=== PATIENT | female | born 1960 | race African-American/Black ===

== ENCOUNTER 2019-01-14 11:56 | Emergency (ER) | payer MEDICAID ==
--- NOTE | 2019-01-14 12:29 | ER Document Report ---
ED Medical Screen (RME) - General Chief Complaint: Skin Sore(s) Stated Complaint: SKIN SORES ON LEG Time Seen by Provider: 01/14/19 12:13 Primary Care Provider: LALITHA HECTOR MD [Primary Care Provider] - Follow up as needed Mode of Arrival: Wheelchair Information source: Patient Notes: 58-year-old female presents emergency department with history of arthritis. Reports she went to see Dr. Hector's office yesterday because she has 2 sores on her lower legs. He prescribed some cream for it. She reports today her son notified her that Dr. Hector's office had called and told her to come to the emergency department. She is not sure why. She denies shortness of breath. She denies history of diabetes.. I contacted Dr. Hector's office. The bilingual office assistant there, Elin?, reports that she contacted Ms. Laure Patel's house today to discuss a surgical referral and talked with Ms Hung sister. Her sister told the bilingual office assistant that the patient's legs were gangrene and her skin was falling off and that is why she was told to come the emergency department. Patient has PVD. Bilateral sores noted on lower legs that appear to be healing. She denies fever vomiting diarrhea. She denies worsening symptoms. Discussed this with patient. Will do basic labs. I have greeted and performed a rapid initial assessment of this patient. A comprehensive ED assessment and evaluation of the patient, analysis of test results and completion of the medical decision making process will be conducted by additional ED providers. Dictation of this chart was performed using voice recognition software; therefore, there may be some unintended grammatical errors. TRAVEL OUTSIDE OF THE [place] IN LAST 30 DAYS: No - Related Data Allergies/Adverse Reactions: No Known Allergies Allergy (Verified 01/14/19 12:01) Past Medical History - Social History Frequency of alcohol use: Rare Drug Abuse: None Physical Exam - Vital signs Vitals: Temp Pulse Resp BP Pulse Ox 98.5 F 91 18 145/80 H 95 01/14/19 11:57 01/14/19 11:57 01/14/19 11:57 01/14/19 11:57 01/14/19 11:57 Course - Vital Signs Vital signs: Temp Pulse Resp BP Pulse Ox 98.5 F 91 18 145/80 H 95 01/14/19 11:57 01/14/19 11:57 01/14/19 11:57 01/14/19 11:57 01/14/19 11:57 Doctor's Discharge - Discharge Referrals: LALITHA HECTOR MD [Primary Care Provider] - Follow up as needed
[2019-01-14 13:09] LABS: ABSOLUTE EOSINOPHILS # (AUTO) 0.1 10^3/uL (0.0-0.6); ABSOLUTE LYMPHOCYTES (AUTO) 1.1 10^3/uL (0.5-4.7); ABSOLUTE MONOCYTES (AUTO) 0.6 10^3/uL (0.1-1.4); BASOPHILS % (AUTO) 0.6 % (0-2); EOSINOPHILS % (AUTO) 1.2 % (0-6); HEMATOCRIT 44.6 % (36.0-47.0); HEMOGLOBIN 15.1 g/dL (12.0-15.5); LYMPHOCYTES % (AUTO) 23.5 % (13-45); MEAN CORPUSCULAR HEMOGLOBIN 35.8 pg (27.0-33.4); MEAN CORPUSCULAR HGB CONC 33.8 g/dL (32.0-36.0); MEAN CORPUSCULAR VOLUME 106 fl (80-97); MONOCYTES % (AUTO) 12.4 % (3-13); PLATELET COUNT 290 10^3/uL (150-450); RED BLOOD COUNT 4.22 10^6/uL (3.72-5.28); RED CELL DISTRIBUTION WIDTH 14.2 % (11.5-14.0); SEGMENTED NEUTROPHILS % (AUTO) 62.3 % (42-78); TOTAL CELLS COUNTED % (AUTO) 100 %; WHITE BLOOD COUNT 4.7 10^3/uL (4.0-10.5)
[2019-01-14 13:25] LABS: ALBUMIN 4.3 g/dL (3.5-5.0); ALKALINE PHOSPHATASE 94 U/L (38-126); ANION GAP 9 (5-19); APPEARANCE,URINE CLOUDY; ASPARTATE AMINO TRANSFERASE 61 U/L (14-36); BILIRUBIN,DIRECT 0.2 mg/dL (0.0-0.4); BILIRUBIN,URINE NEGATIVE (NEGATIVE); BLOOD UREA NITROGEN 8 mg/dL (7-20); CALCIUM 9.7 mg/dL (8.4-10.2); CARBON DIOXIDE 26 mmol/L (22-30); CHLORIDE 103 mmol/L (98-107); COLOR,URINE YELLOW; GLUCOSE 95 mg/dL (75-110); GLUCOSE, URINE NEGATIVE (NEGATIVE); KETONES,URINE NEGATIVE (NEGATIVE); LEUKOCYTE ESTERASE,URINE NEGATIVE (NEGATIVE); NITRITE,URINE NEGATIVE (NEGATIVE); POTASSIUM 4.3 mmol/L (3.6-5.0); PROTEIN,URINE 100 mg/dL (NEGATIVE); TOTAL PROTEIN 7.7 g/dL (6.3-8.2); URINE SPECIFIC GRAVITY 1.017
--- NOTE | 2019-01-14 14:16 | ER Document Report ---
ED General - General Chief Complaint: Skin Sore(s) Stated Complaint: SKIN SORES ON LEG Time Seen by Provider: 01/14/19 12:13 Primary Care Provider: LALITHA HECTOR MD [Primary Care Provider] - Follow up in 1 week JOSE HERNANDEZ MD [ACTIVE STAFF] - Follow up in 1 week Mode of Arrival: Wheelchair TRAVEL OUTSIDE OF THE [place] IN LAST 30 DAYS: No - HPI Notes: 58 year old female with history of HTN to the ED with son with C/O bilateral leg swelling and sores that have been ongoing for several weeks. States that initially she had a wound to the inner right leg, but it seems to have gotten better. However, to the left inner calf there is a wound that is crusted over. It is not particularly painful. Denies fevers, chills, drainage, streaking redn ess. She is a smoker. - Related Data Allergies/Adverse Reactions: No Known Allergies Allergy (Verified 01/14/19 12:01) Past Medical History - General Information source: Patient - Social History Smoking Status: Current Every Day Smoker Frequency of alcohol use: Rare Drug Abuse: None Family History: Reviewed & Not Pertinent, Hypertension Patient has suicidal ideation: No Patient has homicidal ideation: No Musculoskeletal Medical History: Reports Hx Arthritis Review of Systems - Review of Systems Constitutional: denies: Chills, Fever EENT: No symptoms reported Cardiovascular: denies: Chest pain, Palpitations, Heart racing, Dyspnea, Syncope, Dizziness, Lightheaded Respiratory: denies: Cough, Short of breath Gastrointestinal: denies: Abdominal pain, Diarrhea, Nausea, Vomiting Musculoskeletal: See HPI, Joint pain - bilaterall lower leg pain, Joint swelling Skin: See HPI, Change in color -: Yes All other systems reviewed and negative Physical Exam - Vital signs Vitals: Temp Pulse Resp BP Pulse Ox 98.5 F 91 18 145/80 H 95 01/14/19 11:57 01/14/19 11:57 01/14/19 11:57 01/14/19 11:57 01/14/19 11:57 Interpretation: Normal - General General appearance: Appears well, Alert - HEENT Head: Normocephalic, Atraumatic Eyes: Normal Pupils: PERRL - Respiratory Respiratory status: No respiratory distress Chest status: Nontender Breath sounds: Normal Chest palpation: Normal - Cardiovascular Rhythm: Regular Heart sounds: Normal auscultation Murmur: No - Extremities Calf: Other - to bilateral calves up to the knees there is noted discoloration of the skin most consistent with venous stasis. There is a healing ulceration to the inner right calf and an active ulcer to the left inner calf. It is non TTP. the left ulcer involves only breakdown into the skin. There is no erythema or streaking lymphangitis,. There is bilateral lower leg edema. There are diminished DP pulses by touch but they are strong with bedside doppler. - Psychological Associated symptoms: Normal affect, Normal mood - Skin Skin Temperature: Warm Skin Moisture: Dry Skin Color: Other - see musculoskeletal for discussion on bilateral lower leg discoloration Course - Re-evaluation Re-evalutation: received call from [facility] -- preliminary read illustrates no acute arterial occlusion and normal flow of vascularture in arteries of the legs. Impression: Venous stasis with venous stasis ulcer. Patient with reassuring arterial dopplers. Stasis ulcer does not appear infected but family insistent on coverage with ABx. Will send home with Keflex. Will also have patient follow up with Dr. Hernandez for wound. Encouraged smoking cessation and will give compression hose as well. - Vital Signs Vital signs: Temp Pulse Resp BP Pulse Ox 98.9 F 99 15 144/88 H 99 01/14/19 18:18 01/14/19 18:18 01/14/19 18:18 01/14/19 18:18 01/14/19 18:18 - Laboratory Result Diagrams: 01/14/19 12:46 01/14/19 12:46 Laboratory results interpreted by me: 01/14/19 01/14/19 01/14/19 12:46 12:46 12:46 MCV 106 H MCH 35.8 H RDW 14.2 H AST 61 H Urine Protein 100 H Urine Urobilinogen 4.0 H Discharge - Discharge Clinical Impression: Venous stasis dermatitis of both lower extremities Venous stasis ulcer Qualifiers: Venous stasis ulcer site: calf Varicose vein presence: without varicose veins Non-pressure ulcer stage: limited to breakdown of skin Condition: Stable Disposition: HOME, SELF-CARE Additional Instructions: FOLLOW UP WITH PLANER SETUP OPERATOR ABOUT YOUR VENOUS STASIS. WEAR COMPRESSION HOSE. PERFORM ANKLE PUMPS DAILY. MONITOR WOUND. MAY CLEAN WITH WARM SOAPY WATER DAILY. RETURN IF WORSENING PAIN, REDNESS, ENLARGING WOUND, FEVERS, OR ANY OTHER CONCERNS. Prescriptions: Cephalexin Monohydrate [Keflex 500 mg Capsule] 500 mg PO Q6H 7 Days #28 capsule Compress.stocking,Knee,Reg,Lrg [Relief Knee Close Toe] 1 each MC DAILY #1 each Referrals: LALITHA HECTOR MD [Primary Care Provider] - Follow up in 1 week JOSE HERNANDEZ MD [ACTIVE STAFF] - Follow up in 1 week
[2019-01-14 18:28] VITALS: BP 144/88
--- NOTE | 2019-01-16 17:51 | XCELERA REPORT ---
[address] [address] Lower Extremity Arterial Evaluation Name: DAYRON MONTAGUE Age: 58 yrs Gender: Female : 1960 Patient Status: Emergency Patient Location: ER Study Date: 01/14/2019 03:38 PM Procedure: A color flow and duplex scan of the lower extremity arteries was performed bilaterally with velocity and waveform anaylsis. Reason For Study: sx of claudication, bilateral calf pain Ordering Physician: MARISOL TEIXEIRA Performed By: Jarrett Urban Measurements and Calculations Right Left SALT MAKER PSV 185.6 197.6 cm/sec Prox PFA PSV -141.4 -136.7cm/sec Prox SFA PSV 161.9 132.0 cm/sec Mid SFA PSV -166.8 -133.6cm/sec Dist SFA PSV -113.8 -121.0cm/sec Prox Pop A PSV 125.0 136.7 cm/sec Dist GREGORY PSV 112.5 104.2 cm/sec Dist DRY SANDER PSV 56.3 89.3 cm/sec Woo Pedis PSV 113.6 125.7 cm/sec Right Side Arterial Evaluation Normal velocity and triphasic waveforms noted from the Common Femoral artery to the infrageniculate vessels . Posterior Tibial flow somewhat slurred, hyperemic. Ankle Brachial index not obtained . Left Side Arterial Evaluation Normal velocity and triphasic waveforms noted from the Common Femoral artery to the infrageniculate vessels . Posterior Tibial flow somewhat slurred, hyperemic. Ankle Brachial index not obtained . Interpretation Summary No hemodynamically significant lesions in the bilateral lower extremities, on duplex imaging, at rest. : MARISOL TEIXEIRA > John Hernandez
== END 2019-01-14 18:18 | disposition home or self-care (01) ==
LOC: ER 11:56
DX: I87.2 Venous insufficiency (chronic) (peripheral) (principal); I87.319 Chronic venous hypertension (idiopathic) with ulcer of unspecified lower extremity; L98.9 Disorder of the skin and subcutaneous tissue, unspecified; M79.89 Other specified soft tissue disorders; F17.200 Nicotine dependence, unspecified, uncomplicated
CPT/HCPCS: 36415; 80053; 81001; 83880; 85025; 93925; 99283

== ENCOUNTER → 2019-02-10 | Outpatient (CLI) | payer MEDICAID ==
--- NOTE | 2019-02-10 13:48 | WOMENS IMAGING REPORT ---
EXAM DESCRIPTION: 3D SCREENING MAMMO BILAT COMPLETED DATE/TIME: 02/10/2019 11:43 am REASON FOR STUDY: Z12.31 SCREENING MAMMO Z12.31 ENCNTR SCREEN MAMMOGRAM FOR MALIGNANT NEOPLASM OF B RE COMPARISON: 02/28/2013. EXAM PARAMETERS: Views: Standard craniocaudal and mediolateral oblique views of each breast recorded using digital acquisition and breast tomosynthesis. Read with the assistance of CAD. .[facility] - [employer] Version 9.2 LIMITATIONS: None. FINDINGS: No suspicious masses, suspicious calcifications or architectural distortion. No areas of c oncern. IMPRESSION: NEGATIVE MAMMOGRAM. BIRADS 1. BREAST DENSITY: b. There are scattered areas of fibroglandular density. BIRAD: ASSESSMENT: 1 NEGATIVE RECOMMENDATION: ROUTINE SCREENING COMMENT: The patient has been notified of the results by letter per MQSA requirements. Additional no tification policies are in place for contacting patient with suspicious or incomplete findings. Quality ID #[id number]: The [employer] recommends an annual screening mammogram for women aged 40 years or over. This facility utilizes a reminder system to ensure that all patients receive reminder letters, and/or direct phone calls for appointments. This includes reminders for routine scr eening mammograms, diagnostic mammograms, or other Breast Imaging Interventions when appropriate. Th is patient will be placed in the appropriate reminder system. TECHNICAL DOCUMENTATION: FINDING NUMBER: (1) ASSESSMENT: (1) JOB ID: [id number] [employer]- All Rights Reserved Reading location - IP/workstation name: [email or web address]
== END ==
LOC: WI 10:55
PROVIDERS: ATTEND Internal Medicine Geriatric Medicine
DX: Z12.31 Encounter for screening mammogram for malignant neoplasm of breast (principal)
CPT/HCPCS: 77063; 77067

== ENCOUNTER → 2019-05-10 | Outpatient (CLI) | payer MEDICAID ==
[2019-05-10 12:15] LABS: ABSOLUTE EOSINOPHILS # (AUTO) 0.1 10^3/uL (0.0-0.6); ABSOLUTE LYMPHOCYTES (AUTO) 0.9 10^3/uL (0.5-4.7); ABSOLUTE MONOCYTES (AUTO) 0.6 10^3/uL (0.1-1.4); ABSOLUTE NEUT (AUTO) 2.2 10^3/uL (1.7-8.2); BASOPHILS % (AUTO) 0.6 % (0-2); EOSINOPHILS % (AUTO) 2.8 % (0-6); HEMATOCRIT 43.2 % (36.0-47.0); HEMOGLOBIN 14.9 g/dL (12.0-15.5); LYMPHOCYTES % (AUTO) 24.3 % (13-45); MEAN CORPUSCULAR HEMOGLOBIN 36.5 pg (27.0-33.4); MEAN CORPUSCULAR HGB CONC 34.5 g/dL (32.0-36.0); MEAN CORPUSCULAR VOLUME 106 fl (80-97); MONOCYTES % (AUTO) 16.5 % (3-13); PLATELET COUNT 253 10^3/uL (150-450); RED BLOOD COUNT 4.09 10^6/uL (3.72-5.28); RED CELL DISTRIBUTION WIDTH 14.4 % (11.5-14.0); SEGMENTED NEUTROPHILS % (AUTO) 55.8 % (42-78); TOTAL CELLS COUNTED % (AUTO) 100 %; WHITE BLOOD COUNT 3.9 10^3/uL (4.0-10.5)
== END ==
LOC: OD 10:52
PROVIDERS: ATTEND Internal Medicine Geriatric Medicine
DX: R23.8 Other skin changes (principal)
CPT/HCPCS: 36415; 85025; 86592; 87529

== ENCOUNTER 2019-05-18 14:07 | Emergency (ER) | payer MEDICAID ==
--- NOTE | 2019-05-18 14:39 | ER Document Report ---
ED Medical Screen (RME) - General Chief Complaint: Allergic Reaction Stated Complaint: POSSIBLE ALLERGIC REACTION/BODY RASH Time Seen by Provider: 05/18/19 14:33 Primary Care Provider: LALITHA HECTOR MD [Primary Care Provider] - Follow up as needed TRAVEL OUTSIDE OF THE [place] IN LAST 30 DAYS: No - HPI Notes: 05/18/19 14:38 Patient is a 58-year-old female complaining of a widespread rash that is been present since March, generally speaking, presenting complaining of pain to the rash as well as itching. She has been on prednisone which did not help. She is currently on doxycycline by her family doctor as well. Patient was told that it is allergic. She has not had any swelling of lips/tongue/throat or drooling. No fever, chest pain, or shortness of breath. Patient will need placed in gown and fully evaluated in her room. I have treated and performed a rapid initial assessment of this patient. A comprehensive ED assessment and evaluation of the patient, analysis of test results and completion of medical decision making process will be conducted by additional ED providers. PHYSICAL EXAMINATION: GENERAL: Well-appearing, well-nourished and in no acute distress. A&Ox4. Answers questions appropriately. Skin: dry skin noted to the hands b/l that are also cracked/lichenified. - Related Data Allergies/Adverse Reactions: No Known Allergies Allergy (Verified 05/18/19 14:29) Past Medical History Musculoskeltal Medical History: Reports Hx Arthritis Physical Exam - Vital signs Vitals: Temp Pulse Resp BP Pulse Ox 98 F 88 16 135/71 H 100 05/18/19 14:05/18/19 14:05/18/19 14:05/18/19 14:05/18/19 14:26 Course - Vital Signs Vital signs: Temp Pulse Resp BP Pulse Ox 98 F 88 16 135/71 H 100 05/18/19 14:05/18/19 14:05/18/19 14:05/18/19 14:05/18/19 14:26 Doctor's Discharge - Discharge Referrals: LALITHA HECTOR MD [Primary Care Provider] - Follow up as needed
--- NOTE | 2019-05-18 15:57 | ER Document Report ---
ED General - General Chief Complaint: Skin Problem Stated Complaint: POSSIBLE ALLERGIC REACTION/BODY RASH Time Seen by Provider: 05/18/19 14:33 Primary Care Provider: LALITHA HECTOR MD [Primary Care Provider] - Follow up as needed Notes: CHIEF COMPLAINT: Painful rash for 4 months HPI: 58-year-old female who denies other significant medical problems presenting to the emergency department complaining of both a pruritic and painful rash that has been essentially present for 4 months. Patient believes she ate a piece of pie and then broke out in the rash. She saw her PCP and was placed on an antibiotic, does not specifically remember the name but thinks it might have been Levaquin as she was taking 1 pill a day for 10 days. Patient states the rash did not change and actually started to spread and get worse. She states initially it was on the leg and now has the rash around the eyes, torso, all extremities. Patient states that she was placed on pre in February 2019, given a shot of steroids in March, placed back on steroids again at the beginning of April without change or resolution in the rash. She states that her PCP did draw blood work last week but she does not specifically know the results, patient is a poor historian. Patient states that she started doxycycline last night. Patient does report discomfort and drainage from both eyes, reports some dysuria. She also reports some generalized aching in the extremities and joints in addition to discomfort from the rash. Patient has not had a definitive fever. ROS: See HPI - all other systems were reviewed and are otherwise negative Constitutional: no fever Eyes: no drainage, no blurred vision ENT: no runny nose, no sore throat Cardiovascular: no chest pain Resp: no SOB, no cough GI: no vomiting, no diarrhea, no abdominal pain : + dysuria Integumentary: + rash Allergy: no hives Musculoskeletal: + extremity pain or swelling Neurological: no numbness/tingling, no weakness MEDICATIONS: I agree with the patient medications as charted by the RN. ALLERGIES: I agree with the allergies as charted by the RN. PAST MEDICAL HISTORY/PAST SURGICAL HISTORY: Reviewed and agree as charted by RN. SOCIAL HISTORY: Reviewed and agree as charted by RN. FAMILY HISTORY: No significant familial comorbid conditions directly related to patient complaint EXAM: Reviewed vital signs as charted by RN. CONSTITUTIONAL: Alert and oriented and responds appropriately to questions. Well-appearing; well-nourished, mild distress secondary to discomfort HEAD: Normocephalic; atraumatic EYES: PERRL; Conjunctivae injected bilaterally with clear tearing drainage. There is a raised darkened rash in the bilateral periorbital region, sclerae non-icteric ENT: normal nose; no rhinorrhea; moist mucous membranes; pharynx without lesions noted, no uvula edema or deviation, no tonsillar hypertrophy, phonation normal NECK: Supple without meningismus; non-tender; no cervical lymphadenopathy, no masses CARD: RRR; no murmurs, no clicks, no rubs, no gallops; symmetric distal pulses RESP: Normal chest excursion without splinting or tachypnea; breath sounds clear and equal bilaterally; no wheezes, no rhonchi, no rales, pulse oximetry 100% on room air not hypoxic ABD/GI: Obese, normal bowel sounds; non-distended; soft, non-tender, no rebound, no guarding; no palpable organomegaly or masses. BACK: The back appears normal and is non-tender to palpation, there is no CVA tenderness EXT: Normal ROM in all joints; mild generalized tenderness in the extremities; no cyanosis, no effusions, no edema SKIN: Normal color for age and race; warm; dry; good turgor; patient with a raised erythematous thickened and scaled type rash over the dorsum of the bilateral hands as well as on the palmar aspects of the hands with a darkened splotchy rash on the palms. Patient with multiple patches of similar thickened rash on the neck, back, anterior torso, upper and lower extremities. No petechia. No purpura. No vesicles. NEURO: Moves all extremities equally; Motor and sensory function intact PSYCH: The patient's mood and manner are appropriate. Grooming and personal hygiene are appropriate. MDM: 58-year-old female presenting with 4 months of a progressive uncomfortable rash. 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 Will obtain screening baseline lab work. TRAVEL OUTSIDE OF THE [place] IN LAST 30 DAYS: No - Related Data Allergies/Adverse Reactions: No Known Allergies Allergy (Verified 05/18/19 14:29) Past Medical History - Social History Smoking Status: Current Every Day Smoker Chew tobacco use (# tins/day): No Frequency of alcohol use: Occasional Family History: Reviewed & Not Pertinent, Hypertension Patient has suicidal ideation: No Patient has homicidal ideation: No - Past Medical History Cardiac Medical History: Reports: Hx Hypercholesterolemia, Hx Hypertension Musculoskeletal Medical History: Reports Hx Arthritis Physical Exam - Vital signs Vitals: Temp Pulse Resp BP Pulse Ox 98 F 88 16 135/71 H 100 05/18/19 14:26 05/18/19 14:26 05/18/19 14:26 05/18/19 14:26 05/18/19 14:26 Course - Re-evaluation Re-evalutation: 05/18/19 18:57 I discussed evaluation results at length with the patient. Her urine does not show evidence of infection. She does show elevation of her inflammatory markers. HIV was negative. Lab called and stated that they could not run a chlamydial test on a catheterized urine specimen. Discussed with the patient. She will self swab to send a specimen. She does not complain of vaginal discharge. This may be followed by her PCP. She will call her PCP tomorrow to schedule close follow-up in the office. 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 She is on doxycycline currently which would treat chlamydia should this be positive - Vital Signs Vital signs: Temp Pulse Resp BP Pulse Ox 98.7 F 86 16 120/65 100 05/18/19 18:33 05/18/19 18:33 05/18/19 18:33 05/18/19 18:33 05/18/19 18:33 - Laboratory Result Diagrams: 05/18/19 16:00 05/18/19 16:00 Laboratory results interpreted by me: 05/18/19 05/18/19 05/18/19 16:00 16:00 18:03 MCV 107 H MCH 36.3 H RDW 14.1 H ESR 32 H Glucose 111 H AST 42 H C-Reactive Protein 15.9 H Urine Protein >=500 H Urine Ketones TRACE H Urine Bilirubin SMALL H Urine Urobilinogen 4.0 H Urine Ascorbic Acid 40 H Discharge - Discharge 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 Take the Pyridium to help with the disco mfort urinating. You were given a long-acting steroid in the emergency department tonight Prescriptions: Phenazopyridine HCl [Pyridium 100 Mg Tablet] 100 mg PO TID #9 tablet Referrals: LALITHA HECTOR MD [Primary Care Provider] - Follow up as needed
[2019-05-18 16:28] LABS: ABSOLUTE EOSINOPHILS # (AUTO) 0.2 10^3/uL (0.0-0.6); ABSOLUTE LYMPHOCYTES (AUTO) 1.1 10^3/uL (0.5-4.7); ABSOLUTE MONOCYTES (AUTO) 0.7 10^3/uL (0.1-1.4); ABSOLUTE NEUT (AUTO) 4.2 10^3/uL (1.7-8.2); BASOPHILS % (AUTO) 0.3 % (0-2); EOSINOPHILS % (AUTO) 3.5 % (0-6); HEMATOCRIT 42.8 % (36.0-47.0); HEMOGLOBIN 14.5 g/dL (12.0-15.5); LYMPHOCYTES % (AUTO) 17.8 % (13-45); MEAN CORPUSCULAR HEMOGLOBIN 36.3 pg (27.0-33.4); MEAN CORPUSCULAR HGB CONC 33.8 g/dL (32.0-36.0); MEAN CORPUSCULAR VOLUME 107 fl (80-97); MONOCYTES % (AUTO) 10.8 % (3-13); PLATELET COUNT 263 10^3/uL (150-450); RED BLOOD COUNT 3.99 10^6/uL (3.72-5.28); RED CELL DISTRIBUTION WIDTH 14.1 % (11.5-14.0); SEGMENTED NEUTROPHILS % (AUTO) 67.6 % (42-78); TOTAL CELLS COUNTED % (AUTO) 100 %; WHITE BLOOD COUNT 6.1 10^3/uL (4.0-10.5)
[2019-05-18 16:44] LABS: ALBUMIN 4.1 g/dL (3.5-5.0); ALKALINE PHOSPHATASE 82 U/L (38-126); ANION GAP 5 (5-19); ASPARTATE AMINO TRANSFERASE 42 U/L (14-36); BILIRUBIN,TOTAL 0.6 mg/dL (0.2-1.3); BLOOD UREA NITROGEN 8 mg/dL (7-20); C-REACTIVE PROTEIN 15.9 mg/L (<10.0); CALCIUM 9.3 mg/dL (8.4-10.2); CARBON DIOXIDE 30 mmol/L (22-30); CHLORIDE 104 mmol/L (98-107); GLUCOSE 111 mg/dL (75-110); TOTAL PROTEIN 7.6 g/dL (6.3-8.2)
[2019-05-18 17:05] LABS: ERYTHROCYTE SEDIMENTATION RATE 32 mm/hr (0-30)
[2019-05-18 18:45] LABS: APPEARANCE,URINE SLIGHTLY-CLOUDY; BILIRUBIN,URINE SMALL (NEGATIVE); COLOR,URINE AMBER; GLUCOSE, URINE NEGATIVE (NEGATIVE); KETONES,URINE TRACE mg/dL (NEGATIVE); LEUKOCYTE ESTERASE,URINE NEGATIVE (NEGATIVE); NITRITE,URINE NEGATIVE (NEGATIVE); PROTEIN,URINE >=500 mg/dL (NEGATIVE); URINE SPECIFIC GRAVITY 1.027
[2019-05-18] MEDS ORDERED: DEXAMETHASONE 4 MG TABLET PO ONE (18:57)
[2019-05-18] MEDS ORDERED: PHENAZOPYRIDINE HCL 200 MG TABLET PO ONE (18:57)
[2019-05-18 19:32] VITALS: BP 132/82
[2019-05-18 21:19] LABS: CHLAM PCR NOT DETECTED (NOT DETECT)
== END 2019-05-18 19:30 | disposition home or self-care (01) ==
LOC: ER 14:07
DX: M02.39 Reiter's disease, multiple sites (principal); R30.0 Dysuria; R21 Rash and other nonspecific skin eruption; F17.200 Nicotine dependence, unspecified, uncomplicated; I10 Essential (primary) hypertension
CPT/HCPCS: 99283; 36415; 85025; 85652; 86140; 86592; 80053; 81001; 86701; 87491; 87591; J3490 ×2; J8540

== ENCOUNTER → 2019-07-29 | Outpatient (CLI) | payer MEDICAID ==
--- NOTE | 2019-07-29 16:51 | RADIOLOGY REPORT (SQ) ---
EXAM DESCRIPTION: ARTERIAL LOWER EXTREM BILAT; PHYSIO ARTERIAL LTD IMAGES COMPLETED DATE/TIME: 07/29/2019 3:23 pm REASON FOR STUDY: LLE ULCER L97.222 NON-PRESSURE CHRONIC ULCER OF LEFT CALF W FAT LAYER COMPARISON: None. TECHNIQUE: Dynamic and static hernandez scale and color images acquired of the lower extremity arteries. Additional selected spectral images recorded. ABIs recorded. LIMITATIONS: None. FINDINGS: RIGHT LEG: ABIS: Dorsalis pedis 1.29. Could not obtain posterior tibial due to swelling INFLOW ARTERIES: Triphasic waveform. No focal velocity elevation. FEMORAL ARTERIES:Triphasic waveforms. Normal, no velocity elevation to suggest focal stenosis. Normal color Doppler evaluation. No aneurysm. POPLITEAL ARTERY:Triphasic waveforms. Normal, no velocity elevation to suggest focal stenosis. Normal color Doppler evaluation. No aneurysm. PATENT TIBIOPERONEAL TRUNK AND 3 VESSEL RUNOFF: Yes, normal vessels. TBI: Not performed. OTHER: No other significant finding. LEFT LEG: ABIS: Dorsalis pedis 1.36. Could not obtain posterior tibia due to swelling . INFLOW ARTERIES: Normal, no obstruction evident. FEMORAL ARTERIES:Multiphasic waveforms. Normal, no velocity elevation to suggest focal stenosis. Norm al color Doppler evaluation. No aneurysm. POPLITEAL ARTERY:Multiphasic waveforms. Normal, no velocity elevation to suggest focal stenosis. Norm al color Doppler evaluation. No aneurysm. PATENT TIBIOPERONEAL TRUNK AND 3 VESSEL RUNOFF: Yes, normal vessels. TBI: Not performed. OTHER: Left inguinal node measuring 9 mm in short axis, non pathologically enlarged. IMPRESSION: 1. Normal bilateral lower extremity ABIs. 2. Triphasic waveform throughout without evidence of focal high-grade stenosis. COMMENT: [facility] NORMAL: Greater than 1.0 MINIMAL DISEASE: 0.9 to 1.0 CLAUDICATION: 0.5 to 0.9 SEVERE ARTERIAL DISEASE: Less than 0.5 [facility] NORMAL: Greater than 1.0 (1.2 If Heavy Calcifications) NORMAL TO MILD ISCHEMIA: 0.8 to 1.0 MODERATE ISCHEMIA: 0.4 to 0.8 SEVERE ISCHEMIA: Less than 0.4 TECHNICAL DOCUMENTATION: JOB ID: [id number] 2010 [employer]- All Rights Reserved Reading location - IP/workstation name: [email or web address]
--- NOTE | 2019-07-29 16:51 | RADIOLOGY REPORT (SQ) ---
EXAM DESCRIPTION: ARTERIAL LOWER EXTREM BILAT; PHYSIO ARTERIAL LTD IMAGES COMPLETED DATE/TIME: 07/29/2019 3:23 pm REASON FOR STUDY: LLE ULCER L97.222 NON-PRESSURE CHRONIC ULCER OF LEFT CALF W FAT LAYER COMPARISON: None. TECHNIQUE: Dynamic and static hernandez scale and color images acquired of the lower extremity arteries. Additional selected spectral images recorded. ABIs recorded. LIMITATIONS: None. FINDINGS: RIGHT LEG: ABIS: Dorsalis pedis 1.29. Could not obtain posterior tibial due to swelling INFLOW ARTERIES: Triphasic waveform. No focal velocity elevation. FEMORAL ARTERIES:Triphasic waveforms. Normal, no velocity elevation to suggest focal stenosis. Normal color Doppler evaluation. No aneurysm. POPLITEAL ARTERY:Triphasic waveforms. Normal, no velocity elevation to suggest focal stenosis. Normal color Doppler evaluation. No aneurysm. PATENT TIBIOPERONEAL TRUNK AND 3 VESSEL RUNOFF: Yes, normal vessels. TBI: Not performed. OTHER: No other significant finding. LEFT LEG: ABIS: Dorsalis pedis 1.36. Could not obtain posterior tibia due to swelling . INFLOW ARTERIES: Normal, no obstruction evident. FEMORAL ARTERIES:Multiphasic waveforms. Normal, no velocity elevation to suggest focal stenosis. Norm al color Doppler evaluation. No aneurysm. POPLITEAL ARTERY:Multiphasic waveforms. Normal, no velocity elevation to suggest focal stenosis. Norm al color Doppler evaluation. No aneurysm. PATENT TIBIOPERONEAL TRUNK AND 3 VESSEL RUNOFF: Yes, normal vessels. TBI: Not performed. OTHER: Left inguinal node measuring 9 mm in short axis, non pathologically enlarged. IMPRESSION: 1. Normal bilateral lower extremity ABIs. 2. Triphasic waveform throughout without evidence of focal high-grade stenosis. COMMENT: [facility] NORMAL: Greater than 1.0 MINIMAL DISEASE: 0.9 to 1.0 CLAUDICATION: 0.5 to 0.9 SEVERE ARTERIAL DISEASE: Less than 0.5 [facility] NORMAL: Greater than 1.0 (1.2 If Heavy Calcifications) NORMAL TO MILD ISCHEMIA: 0.8 to 1.0 MODERATE ISCHEMIA: 0.4 to 0.8 SEVERE ISCHEMIA: Less than 0.4 TECHNICAL DOCUMENTATION: JOB ID: [id number] 2010 [employer]- All Rights Reserved Reading location - IP/workstation name: [email or web address]
== END ==
LOC: SP 13:20
PROVIDERS: ATTEND Nurse Practitioner Family
DX: L97.222 Non-pressure chronic ulcer of left calf with fat layer exposed (principal)
CPT/HCPCS: 93922; 93925

== ENCOUNTER 2020-03-01 16:04 | Inpatient (IN) | payer MEDICAID ==
[2020-03-01] MEDS ORDERED: ACETAMINOPHEN 325 MG TABLET PO ONE (16:32)
--- NOTE | 2020-03-01 17:13 | ER Document Report ---
ED General - General Chief Complaint: Altered Mental Status Stated Complaint: ALTERED MENTAL STATUS Time Seen by Provider: 03/01/20 16:20 Notes: Patient is a 59-year-old female who presents emergency department via EMS for altered mental status. 12 hours prior to arrival, the patient had been altered. Patient also developed difficulty breathing. Patient is able to communicate with me in short phrases. Patient is tachypneic. She also has a fever of 102.5. Patient states that she is a current everyday smoker. Patient also states that she is a drinker. She does not know what medication she takes. TRAVEL OUTSIDE OF THE [place] IN LAST 30 DAYS: No - Related Data Allergies/Adverse Reactions: No Known Allergies Allergy (Verified 05/18/19 14:29) Past Medical History - Social History Smoking Status: Current Every Day Smoker Family History: Reviewed & Not Pertinent, Hypertension - Past Medical History Cardiac Medical History: Reports: Hx Hypercholesterolemia, Hx Hypertension Musculoskeletal Medical History: Reports Hx Arthritis Review of Systems - Review of Systems -: Yes ROS unobtainable due to patient's medical condition Physical Exam - Vital signs Vitals: Resp Pulse Ox 34 H 98 03/01/20 16:16 03/01/20 16:16 - Notes Notes: PHYSICAL EXAMINATION: GENERAL: Moderate distress. HEAD: Normocephalic, atraumatic. EYES: PERRL, conjunctiva normal, all extraocular movements intact, sclera nonicteric ENT: Moist mucous membranes. NECK: Supple, nuchal rigidity noted. LUNGS: Rhonchi lung sounds noted throughout all lung win. CARDIOVASCULAR: S1-S2, tachycardic, regular rhythm. Radial pulses 2+, normal. ABDOMEN: Normoactive bowel sounds. Soft, tender mid lower abdomen, no guarding, no rebound tenderness, and no masses palpated. EXTREMITIES: Normal strength and range of motion, no pitting or edema. No cyanosis. NEUROLOGICAL: Moves all extremities upon command. Strength 5/5 in all extremities. PSYCH: Normal mood, normal affect. SKIN: Warm, dry. No rash, lesions, ulcerations noted. Normal skin turgor. Course - Re-evaluation Re-evalutation: 03/01/20 19:36 I was able to speak to the patient's son, James Lopez and the patient's daughter. They report that the patient has multiple people coming in and out of the house giving her alcohol. They do not know if she has had any contact with anybody who tested positive for COVID-19. Daughter reports that the patient's neck has been stiff. 03/01/20 20:04 Hematology shows a leukocytosis of 11,800 with a left shift. Urinalysis shows a moderate amount of leukocytes in her urine with 148 WBCs. Patient also has a large amount of blood in her urine. We will start her on Rocephin. Chemistries show potassium of 3.2. Ordered potassium. Her creatinine is 2.73. Lactic acid is 3.2. Troponin is 0.046, will repeat another troponin. Chest x-ray is unremarkable. Waiting for CT of the head. Ordered Ativan for the patient to prevent alcohol withdrawals and to get an accurate CT of the head. 03/01/20 22:39 There is hydrocephalus noted on the patient's CT of the head. Discussed this case with Dr. Owen, my attending. She states that at this time, doing a lumbar puncture would not be appropriate and we will empirically treat patient for bacterial and viral meningitis. Spoke with Dr. Cornell, the hospitalist. He will evaluate the patient. 03/01/20 23:44 Dr. Cornell, the hospitalist will admit the patient to [facility]. - Vital Signs Vital signs: Temp Pulse Resp BP Pulse Ox 98.8 F 109 H 22 H 103/64 96 03/01/20 17:20 03/01/20 23:00 03/02/20 01:01 03/02/20 01:01 03/02/20 01:01 - Laboratory Result Diagrams: 03/01/20 16:45 03/01/20 16:45 Laboratory results interpreted by me: 03/01/20 03/01/20 03/01/20 16:45 16:45 16:45 WBC 11.8 H MCV 103 H MCH 35.2 H RDW 16.6 H Lymph % (Auto) 5.2 L Hand % (Auto) 2.7 L Absolute Neuts (auto) 10.8 H Seg Neutrophils % 91.8 H PT 15.5 H Potassium 3.2 L Carbon Dioxide 21 L BUN 41 H Creatinine 2.73 H Est GFR ( Amer) 21 L Est GFR (MDRD) Non-Af 18 L Lactic Acid Total Bilirubin 6.8 H Direct Bilirubin 2.2 H AST 165 H ALT 40 H Total Protein 8.6 H Urine Protein Urine Blood Urine Urobilinogen Leukocyte Esterase Rfl 03/01/20 03/01/20 16:45 19:03 WBC MCV MCH RDW Lymph % (Auto) Hand % (Auto) Absolute Neuts (auto) Seg Neutrophils % PT Potassium Carbon Dioxide BUN Creatinine Est GFR ( Amer) Est GFR (MDRD) Non-Af Lactic Acid 3.2 H Total Bilirubin Direct Bilirubin AST ALT Total Protein Urine Protein >=500 H Urine Blood LARGE H Urine Urobilinogen 2.0 H Leukocyte Esterase Rfl MODERATE H - EKG Interpretation by Me Additional EKG results interpreted by me: 03/01/20 Sinus tachycardia. Rate 119. NM 80; QRS 96; QT 304; QTc 428. No ST elevations or depressions noted. Discharge - Discharge Clinical Impression: Suspected infectious meningitis, Suspected COVID-19 virus infection Altered mental status Qualifiers: Altered mental status type: unspecified Qualified Code(s): R41.82 - Altered mental status, unspecified Sepsis Qualifiers: Sepsis type: sepsis due to unspecified organism Sepsis acute organ dysfunction status: unspecified Qualified Code(s): A41.9 - Sepsis, unspecified organism Condition: Stable Disposition: ADMITTED INPATIENT Admitting Provider: Dr. Cornell Unit Admitted: IMCU - COVID Rule out
[2020-03-01 17:22] LABS: INTERNATIONAL RATION (INR) 1.21; PROTHROMBIN TIME 15.5 SEC (11.4-15.4)
[2020-03-01 17:35] LABS: ABSOLUTE LYMPHOCYTES (AUTO) 0.6 10^3/uL (0.5-4.7); ABSOLUTE MONOCYTES (AUTO) 0.3 10^3/uL (0.1-1.4); ABSOLUTE NEUT (AUTO) 10.8 10^3/uL (1.7-8.2); BASOPHILS % (AUTO) 0.2 % (0-2); EOSINOPHILS % (AUTO) 0.1 % (0-6); LYMPHOCYTES % (AUTO) 5.2 % (13-45); MEAN CORPUSCULAR HEMOGLOBIN 35.2 pg (27.0-33.4); MEAN CORPUSCULAR HGB CONC 34.1 g/dL (32.0-36.0); MEAN CORPUSCULAR VOLUME 103 fl (80-97); MONOCYTES % (AUTO) 2.7 % (3-13); PLATELET COUNT 167 10^3/uL (150-450); RED BLOOD COUNT 3.97 10^6/uL (3.72-5.28); RED CELL DISTRIBUTION WIDTH 16.6 % (11.5-14.0); SEGMENTED NEUTROPHILS % (AUTO) 91.8 % (42-78); TOTAL CELLS COUNTED % (AUTO) 100 %; WHITE BLOOD COUNT 11.8 10^3/uL (4.0-10.5)
--- NOTE | 2020-03-01 17:38 | RADIOLOGY REPORT (SQ) ---
EXAM DESCRIPTION: CHEST SINGLE VIEW IMAGES COMPLETED DATE/TIME: 03/01/2020 5:04 pm REASON FOR STUDY: bed 6 sepsis protocol COMPARISON: None. EXAM PARAMETERS: NUMBER OF VIEWS: One view. TECHNIQUE: Single frontal radiographic view of the chest acquired. RADIATION DOSE: NA LIMITATIONS: None. FINDINGS: LUNGS AND PLEURA: No opacities, masses or pneumothorax. No pleural effusion. MEDIASTINUM AND HILAR STRUCTURES: No masses. Contour normal. HEART AND VASCULAR STRUCTURES: Heart normal in size. Normal vasculature. BONES: No acute findings. HARDWARE: None in the chest. OTHER: No other significant finding. IMPRESSION: NO ACUTE RADIOGRAPHIC FINDING IN THE CHEST. TECHNICAL DOCUMENTATION: JOB ID: [id number] 2010 [employer]- All Rights Reserved Reading location - IP/workstation name: [email or web address]
[2020-03-01 17:44] LABS: ALBUMIN 3.8 g/dL (3.5-5.0); ALKALINE PHOSPHATASE 97 U/L (38-126); ANION GAP 17 (5-19); ASPARTATE AMINO TRANSFERASE 165 U/L (14-36); BILIRUBIN,DIRECT 2.2 mg/dL (0.0-0.4); BILIRUBIN,TOTAL 6.8 mg/dL (0.2-1.3); BLOOD UREA NITROGEN 41 mg/dL (7-20); CARBON DIOXIDE 21 mmol/L (22-30); CHLORIDE 106 mmol/L (98-107); GLUCOSE 96 mg/dL (75-110); POTASSIUM 3.2 mmol/L (3.6-5.0); TOTAL PROTEIN 8.6 g/dL (6.3-8.2)
[2020-03-01] MEDS ORDERED: NORMAL SALINE 1000 ML 1,000 ML IV ONE (19:21)
[2020-03-01 19:28] LABS: APPEARANCE,URINE CLOUDY; BILIRUBIN,URINE NEGATIVE (NEGATIVE); GLUCOSE, URINE NEGATIVE (NEGATIVE); KETONES,URINE NEGATIVE (NEGATIVE); PROTEIN,URINE >=500 mg/dL (NEGATIVE); URINE SPECIFIC GRAVITY 1.019
[2020-03-01 19:29] LABS: COLOR,URINE YELLOW
[2020-03-01] MEDS ORDERED: CEFTRIAXONE 1 GM/D5W RTU 1 GM/50 ML RTUPB IV ONE (19:33)
[2020-03-01] MEDS ORDERED: LORAZEPAM INJ 2 MG/1 ML VIAL IV ONE (19:35)
[2020-03-01 21:14] LABS: A TYPE INFLUENZA AG NEGATIVE (NEGATIVE); B INFLUENZA AG NEGATIVE (NEGATIVE)
[2020-03-01] MEDS: POTASSI CL 20 MEQ/50 ML RIDER 20 MEQ/50 ML RTUPB IV SCH ×2 (21:34→22:59)
--- NOTE | 2020-03-01 21:54 | RADIOLOGY REPORT (SQ) ---
EXAM DESCRIPTION: CT HEAD WITHOUT IV CONTRAST COMPLETED DATE/TME: 03/01/2020 16:32 CLINICAL HISTORY: 59 years, Female, AMS COMPARISON: None. TECHNIQUE: Axial images without IV contrast. Sagittal coronal reconstruction. Images stored on PACS. All CT scanners at this facility use dose modulation, iterative reconstruction, and/or weight based dosing when appropriate to reduce radiation dose to as low as reasonably achievable (ALARA). FINDINGS: Moderate to prominent enlargement of the third and lateral ventricles. Normal size fourth ventricle. Relative effacement of the sulci especially in the upper slices of the brain. No suspicious focal intra-axial or extra-axial abnormality. Vascular calcifications. Paranasal sinuses, mastoid air cells and bony calvarium are unremarkable. IMPRESSION: Suspected hydrocephalus. NPH? Other cause such as aqueduct stenosis? Consider MRI. No old studies for comparison. TECHNICAL DOCUMENTATION: Quality ID # 436: Final reports with documentation of one or more dose reduction techniques (e.g., Automated exposure control, adjustment of the mA and/or kV according to patient size, use of iterative reconstruction technique) copyright 2011 [employer]- All Rights Reserved
[2020-03-01] MEDS ORDERED: VANCOMYCIN HCL INJ 1000 MG VIAL IV ONE (22:26)
[2020-03-01] MEDS ORDERED: CEFTRIAXONE INJ 1000 MG VIAL IV ONE (22:28)
[2020-03-01] MEDS ORDERED: ACYCLOVIR SODIUM INJ/PF 500 MG/10 ML SDV IV ONE (23:54)
[2020-03-02] MEDS ORDERED: ACETAMINOPHEN 650 MG SUPP.RECT PR PRN (00:04)
[2020-03-02] MEDS ORDERED: DEXTROSE 5%-NORMAL SALINE 1,000 ML IV PRN (00:04)
[2020-03-02] MEDS ORDERED: VANCOMYCIN HCL 0 MG in DEXTROSE 5%-WATER 250 ML IV NR (00:15)
[2020-03-02] MEDS ORDERED: DEXTROSE 50%-WATER 25 GM/50 ML DISP.SYRIN IV PRN ×2 (00:22)
[2020-03-02] MEDS ORDERED: DEXTROSE 40% GEL 15 GM TUBE PO PRN ×2 (00:22)
[2020-03-02] MEDS ORDERED: GLUCAGON,HUMAN RECOMB 1 MG INJ IM PRN (00:22)
--- NOTE | 2020-03-02 00:46 | PDOC H&P ---
History of Present Illness Admission Date/PCP: 03/02/20 00:08 MARISA BOTELLO NP Patient complains of: Altered mental status History of Present Illness: Patient is altered and history is per ER signout and chart review, attempt to reach patient's next of kin(son) with unsuccessful DAYRON MONTAGUE is a 59 year old female with a history of hypertension, hyperlipidemia and alcohol abuse was brought in by EMS for altered mental status which started 12 hours prior to presentation. According to her daughter Per ER signout, patient has been having neck pain and stiffness for the past few days. She also reported that she thinks people have been giving her alcohol at their house. On arrival patient was found to be lethargic but arousable with noxious stimuli, she had labored breathing. She was tachycardic, tachypneic and had a fever of 102.5. She was given a dose of vancomycin and ceftriaxone at the ER. No sick contact history is known. Past Medical History Cardiac Medical History: Reports: Hyperlipidema, Hypertension Musculoskeltal Medical History: Reports: Arthritis Social History Information Source: [facility] Records Smoking Status: Current Every Day Smoker - Advance Directive Resuscitation Status: Full Code Family History Family History: Reviewed & Not Pertinent, Hypertension Parental Family History Reviewed: No - Patient is altered Children Family History Reviewed: Unknown Sibling(s) Family History Reviewed.: Unknown Medication/Allergy Home Medications: No Home Medications 03/02/20 Allergies/Adverse Reactions: No Known Allergies Allergy (Verified 05/18/19 14:29) Review of Systems ROS unobtainable: Due to mental status Physical Exam Vital Signs: Temp Pulse Resp BP Pulse Ox 98.8 F 109 H 22 H 111/67 97 03/01/20 17:20 03/01/20 23:00 03/01/20 23:00 03/01/20 23:00 03/01/20 23:00 Intake & Output 02/29/20 03/01/20 03/02/20 06:59 06:59 06:59 Intake Total 1085 Balance 1085 Weight 81.647 kg Additional comments: GENERAL APPEARANCE: Lethargic but arousable, answers with one-word, not oriented to place and time HEENT: Normocephalic and atraumatic. No scleral icterus. Dry oral mucosa NECK: Has neck stiffness. No JVD CHEST: Symmetric. Nontender to palpation. LUNGS: Has coarse rhonchi and transmitted sound bilaterally HEART: Tachycardic, with normal S1 and S2. No murmurs, gallops, or rubs. ABDOMEN: Full abdomen, moves with respiration, soft, normoactive bowel sound. No organomegaly or mass detected. No direct or rebound tenderness EXTREMITIES: Has stasis dermatitis with dried and darkly discolored lower extremities distal to her knee PSYCHIATRIC: Unable to evaluate due to altered mental status SKIN: Warm, dry, and well perfused. NEUROLOGIC: Patient moves all her extremities and withdraws from noxious stimuli Has positive meningeal sign with neck stiffness Results Laboratory Results: 03/01/20 16:45 03/01/20 16:45 03/01/20 03/01/20 03/01/20 16:45 16:45 16:45 WBC 11.8 H RBC 3.97 Hgb 14.0 Hct 41.0 MCV 103 H MCH 35.2 H MCHC 34.1 RDW 16.6 H Plt Count 167 Seg Neutrophils % 91.8 H Sodium 143.5 Potassium 3.2 L Chloride 106 Carbon Dioxide 21 L Anion Gap 17 BUN 41 H Creatinine 2.73 H Est GFR ( Amer) 21 L Glucose 96 Lactic Acid 3.2 H Calcium 9.0 Total Bilirubin 6.8 H AST 165 H Alkaline Phosphatase 97 Total Protein 8.6 H Albumin 3.8 Urine Color Urine Appearance Urine pH Ur Specific [place] Urine Protein Urine Glucose (UA) Urine Ketones Urine Blood Urine RBC (Auto) 03/01/20 03/01/20 03/01/20 19:03 20:38 23:07 WBC RBC Hgb Hct MCV MCH MCHC RDW Plt Count Seg Neutrophils % Sodium Potassium Chloride Carbon Dioxide Anion Gap BUN Creatinine Est GFR ( Amer) Glucose Lactic Acid 1.7 2.0 Calcium Total Bilirubin AST Alkaline Phosphatase Total Protein Albumin Urine Color YELLOW Urine Appearance CLOUDY Urine pH 5.0 Ur Specific [place] 1.019 Urine Protein >=500 H Urine Glucose (UA) NEGATIVE Urine Ketones NEGATIVE Urine Blood LARGE H Urine RBC (Auto) 41 03/01/20 03/01/20 16:45 20:38 Troponin I 0.046 0.042 Impressions: Chest X-Ray 03/01/20 16:19 IMPRESSION: NO ACUTE RADIOGRAPHIC FINDING IN THE CHEST. Head CT 03/01/20 16:32 IMPRESSION: Suspected hydrocephalus. NPH? Other cause such as aqueduct stenosis? Consider MRI. No old studies for comparison. TECHNICAL DOCUMENTATION: Quality ID # 436: Final reports with documentation of one or more dose reduction techniques (e.g., Automated exposure control, adjustment of the mA and/or kV according to patient size, use of iterative reconstruction technique) copyright 2011 [employer]- All Rights Reserved Assessment and Plan - Diagnosis (1) Meningoencephalitis Is this a current diagnosis for this admission?: Yes Plan: Patient presents with altered mental status Has high-grade fever Positive meningeal sign CT head concerning for hydrocephalus Started her on vancomycin, ceftriaxone, Cyclovir Follow-up with blood cultures (2) Acute metabolic encephalopathy Is this a current diagnosis for this admission?: Yes Plan: Patient presents with altered mentation Likely due to meningoencephalitis, volume depletion, acute kidney injury, intoxication Will treat underlying cause with IV hydration, antibiotics For precaution, aspiration and seizure precaution (3) Sepsis Qualifiers: Sepsis type: sepsis due to unspecified organism Sepsis acute organ dysfunction status: unspecified Qualified Code(s): A41.9 - Sepsis, unspecified organism Is this a current diagnosis for this admission?: Yes Plan: Patient meets septic criteria for SIRS & qSOFA Lactic acid level was elevated and have leukocytosis Was hydrated with LR Currently on vancomycin, ceftriaxone and ampicillin for meningitis Continue close monitoring of vital (4) Acute kidney injury Is this a current diagnosis for this admission?: Yes Plan: BUN/creatinine was 41/2.73 from a baseline of 0.52 Continue IV hydration Monitor renal indicis Renally dose medication and avoid nephrotoxic If no improvement, will consider nephrology consult (5) Hypokalemia Is this a current diagnosis for this admission?: Yes Plan: Serum potassium was 3.2 Patient was given potassium supplement Continue to monitor electrolytes (6) Hydrocephalus Is this a current diagnosis for this admission?: Yes Plan: CT head shows signs of hydrocephalus, likely NPH Patient has no signs of Alin triad suggestive of increased ICP May consider MRI for further characterization per radiology recommendation (7) Hypertension Is this a current diagnosis for this admission?: Yes Plan: We will hold antihypertensive medication due to JANET and volume depletion (8) Alcohol dependence Is this a current diagnosis for this admission?: Yes Plan: Serum alcohol level was less than 10 on presentation Placed her on CIWA protocol for placement of withdrawal (9) Tobacco dependence Is this a current diagnosis for this admission?: Yes - Time Time Spent with patient: 35 or more minutes Total Critical Time (Minutes): 50 Medications reviewed and adjusted accordingly: Yes Anticipated Discharge Disposition: Home, Self Care Anticipated Discharge Timeframe: within 72 hours - Inpatient Certification Based on my medical assessment, after consideration of the patient's comorbidities, presenting symptoms, or acuity I expect that the services needed warrant INPATIENT care.: Yes I certify that my determination is in accordance with my understanding of Medicare's requirements for reasonable and necessary INPATIENT services [42 CFR 412.3e].: Yes Medical Necessity: Significant Comorbidiites Make Outpatient Treatment Too Risk y, Need Close Monitoring Due to Risk of Patient Decompensation, Need For IV Fluids, Need for IV Antibiotics Post Hospital Care: D/C or Transfer Summary
[2020-03-02] MEDS ORDERED: VANCOMYCIN HCL INJ 1000 MG VIAL IV PRN (01:38)
[2020-03-02] MEDS ORDERED: AMPICILLIN SOD INJ 2 GM VIAL IV PRN (01:51)
[2020-03-02] MEDS ORDERED: VANCOMYCIN HCL 750 MG in DEXTROSE 5%-WATER 250 ML IV ONE (02:00)
[2020-03-02] MEDS ORDERED: AMPICILLIN SODIUM 2 GM in NORMAL SALINE 100 ML IV ONE (03:00)
[2020-03-02] MEDS ORDERED: AMPICILLIN SOD INJ 2 GM VIAL ONE (03:51)
[2020-03-02] MEDS ORDERED: POTASSI CL 20 MEQ/50 ML RIDER 20 MEQ/50 ML RTUPB IV ONE (05:06)
[2020-03-02] MEDS ORDERED: ACYCLOVIR SODIUM 750 MG in NORMAL SALINE 250 ML IV SCH (06:00)
[2020-03-02 07:55] LABS: ABSOLUTE EOSINOPHILS # (AUTO) 0.1 10^3/uL (0.0-0.6); ABSOLUTE LYMPHOCYTES (AUTO) 0.5 10^3/uL (0.5-4.7); ABSOLUTE MONOCYTES (AUTO) 0.3 10^3/uL (0.1-1.4); ABSOLUTE NEUT (AUTO) 8.1 10^3/uL (1.7-8.2); BASOPHILS % (AUTO) 0.4 % (0-2); EOSINOPHILS % (AUTO) 0.8 % (0-6); HEMOGLOBIN 12.8 g/dL (12.0-15.5); LYMPHOCYTES % (AUTO) 5.9 % (13-45); MEAN CORPUSCULAR HEMOGLOBIN 35.7 pg (27.0-33.4); MEAN CORPUSCULAR HGB CONC 34.5 g/dL (32.0-36.0); MEAN CORPUSCULAR VOLUME 104 fl (80-97); PLATELET COUNT 126 10^3/uL (150-450); RED BLOOD COUNT 3.57 10^6/uL (3.72-5.28); SEGMENTED NEUTROPHILS % (AUTO) 89.9 % (42-78); TOTAL CELLS COUNTED % (AUTO) 100 %
[2020-03-02] MEDS: CEFTRIAXONE 2 GM/D5W RTU 2 GM/50 ML RTUPB IV SCH ×2 (07:57→17:05)
[2020-03-02 08:17] LABS: ANION GAP 11 (5-19); BLOOD UREA NITROGEN 50 mg/dL (7-20); CALCIUM 8.3 mg/dL (8.4-10.2); CARBON DIOXIDE 23 mmol/L (22-30); CHLORIDE 111 mmol/L (98-107); GLUCOSE 102 mg/dL (75-110); POTASSIUM 3.8 mmol/L (3.6-5.0)
--- NOTE | 2020-03-02 09:47 | EKG REPORT ---
SEVERITY:- ABNORMAL ECG - SINUS TACHYCARDIA BORDERLINE LEFT AXIS DEVIATION ABNRM R PROG, CONSIDER ASMI OR LEAD PLACEMENT ABNORMAL T, CONSIDER ISCHEMIA, LATERAL LEADS : Confirmed by: Colt Chaidez MD 02-Mar-2020 09:45:56
[2020-03-02] MEDS: ACYCLOVIR SODIUM 1,000 MG in NORMAL SALINE 250 ML IV SCH ×2 (09:52→21:49)
[2020-03-02] MEDS ORDERED: HEPARIN SOD (PORCINE) 5,000 UNIT/ML 1 ML VIAL SUBCUT SCH (10:00)
[2020-03-02] MEDS ORDERED: LORAZEPAM INJ 2 MG/1 ML VIAL IV PRN (10:29)
[2020-03-02 10:32] LABS: URINE CREATININE 345.8 mg/dL (15-278)
[2020-03-02] MEDS: AMPICILLIN SODIUM 2 GM in NORMAL SALINE 100 ML IV SCH ×2 (11:19→17:39)
--- NOTE | 2020-03-02 13:45 | RADIOLOGY REPORT (SQ) ---
EXAM DESCRIPTION: MRI HEAD WITHOUT IMAGES COMPLETED DATE/TIME: 03/02/2020 12:15 pm REASON FOR STUDY: concern for obstructive hydrocephalus COMPARISON: CT brain 03/01/2020 TECHNIQUE: Multiplanar imaging includes non-contrasted T1, T2, FLAIR, and diffusion with ADC map seq uences. Images stored on PACS. LIMITATIONS: Motion artifact throughout the study FINDINGS: There is significant motion artifact throughout the entire exam. Diffusion-weighted images are negative for acute ischemic change. Mild ventriculomegaly is present out of proportion to sulci and sylvian fissures. Minimal spotty bifrontal and biparietal high signal on FLAIR images likely from chronic small vessel disease. IMPRESSION: Extremely limited brain MRI exam due to motion artifact. No large territory acute ische jessica change. Mild ventriculomegaly out of proportion to sulci and sylvian fissures. Hemispheric chronic white mat ter disease. EVIDENCE OF ACUTE STROKE: NO. TECHNICAL DOCUMENTATION: JOB ID: [id number] 2010 [employer]- All Rights Reserved Reading location - IP/workstation name: [email or web address]
[2020-03-02 14:37] LABS: CSF TUBE NUMBER 1
[2020-03-02 14:42] LABS: APPEARANCE TUBE 1 CLEAR; COLOR TUBE 1 LIGHT YELLOW
[2020-03-02 14:43] LABS: CSF TOTAL VOLUME 0.5 CC; VOLUME TUBE 1 0.5 CC
[2020-03-02 15:02] LABS: RED BLOOD CELL,CSF 766 /uL (0-10); WHITE BLOOD CELL,CSF 20 /uL (0-5)
[2020-03-02 15:29] LABS: MONONUCLEAR CELLS CSF 91 %; POLYMORPHONUCLEAR CELLS CSF 9 %
--- NOTE | 2020-03-02 15:45 | RADIOLOGY REPORT (SQ) ---
EXAM DESCRIPTION: LUMBAR PUNCTURE IMAGES COMPLETED DATE/TIME: 03/02/2020 1:10 pm REASON FOR STUDY: rule out meningitis vs encephalitis vs high ICP COMPARISON: None. FLUOROSCOPY TIME: 48 second 2 images saved to PACS. TECHNIQUE: Fluoroscopic guided lumbar puncture. LIMITATIONS: None. PROCEDURE: After written consent and assessment were obtained, the patient was brought into the fluo roscopy room and placed prone on the table. The patient's lower back was prepped in a sterile fashio n and an entry site was selected under live fluoroscopic guidance. The entry site was anesthetized wi th 1% lidocaine. A 20 gauge needle was advanced through the skin and into the thecal sac at the level of L2-L3. Opening pressure measured 14 cm water. After approximately 0.5 ml was drained, no more f luid could be obtained. Another attempt was made at the L3-4 level. No C FS was obtained from this level. The needle was removed and a sterile bandage was placed of the site. Specimens were sent to the lab for testing. A fluoroscopic spot image was saved to PACS confirming level access. FINDINGS: Clear CSF IMPRESSION: Lumbar puncture under fluoroscopy. No immediate complication. Only obtained 0.5 mL CSF. COMMENT: Patient medication list reviewed: Yes- Quality ID# 130:Eligible professional attests to doc umenting in the medical record they obtained, updated, or reviewed the patient's current medications. . Quality ID 145: Final reports for procedures using fluoroscopy that document radiation exposure jacquelin yifan, or exposure time and number of fluorographic images (if radiation exposure indices are not avail able) TECHNICAL DOCUMENTATION: JOB ID: [id number] 2010 [employer]- All Rights Reserved Reading location - IP/workstation name: [email or web address]
[2020-03-02] MEDS ORDERED: CEFTRIAXONE 2 GM/D5W RTU 2 GM/50 ML RTUPB IV SCH (18:00)
[2020-03-03] MEDS ORDERED: VANCOMYCIN HCL 1,500 MG in DEXTROSE 5%-WATER 250 ML IV SCH (06:00)
[2020-03-03] MEDS: CEFTRIAXONE 2 GM/D5W RTU 2 GM/50 ML RTUPB IV SCH (06:08)
[2020-03-03 07:46] LABS: EOSINOPHILS % (AUTO) 0.2 % (0-6); LYMPHOCYTES % (AUTO) 11.4 % (13-45); TOTAL CELLS COUNTED % (AUTO) 100 %
[2020-03-03 07:48] LABS: ABSOLUTE LYMPHOCYTES (AUTO) 0.9 10^3/uL (0.5-4.7); ABSOLUTE MONOCYTES (AUTO) 0.6 10^3/uL (0.1-1.4); ABSOLUTE NEUT (AUTO) 6.7 10^3/uL (1.7-8.2); BASOPHILS % (AUTO) 0.4 % (0-2); HEMOGLOBIN 13.3 g/dL (12.0-15.5); MEAN CORPUSCULAR HGB CONC 34.1 g/dL (32.0-36.0); MEAN CORPUSCULAR VOLUME 103 fl (80-97); MONOCYTES % (AUTO) 7.3 % (3-13); PLATELET COUNT 116 10^3/uL (150-450); RED CELL DISTRIBUTION WIDTH 17.2 % (11.5-14.0); SEGMENTED NEUTROPHILS % (AUTO) 80.7 % (42-78); WHITE BLOOD COUNT 8.3 10^3/uL (4.0-10.5)
[2020-03-03] MEDS: AMPICILLIN SODIUM 2 GM in NORMAL SALINE 100 ML IV SCH ×3 (09:18)
[2020-03-03] MEDS: ACYCLOVIR SODIUM 1,000 MG in NORMAL SALINE 250 ML IV SCH (09:18)
[2020-03-03] MEDS ORDERED: ACETAMINOPHEN 325 MG TABLET ONE (11:06)
[2020-03-03] MEDS: FOLIC ACID 1 MG TABLET PO SCH (11:15)
[2020-03-03] MEDS: THIAMINE HCL 100 MG TABLET PO SCH (11:15)
[2020-03-03] MEDS: NICOTINE 14 MG/24 HR PATCH.TD24 TD SCH (11:15)
[2020-03-03 13:34] LABS: ANION GAP 10 (5-19); BLOOD UREA NITROGEN 33 mg/dL (7-20); CALCIUM 8.3 mg/dL (8.4-10.2); CARBON DIOXIDE 20 mmol/L (22-30); CHLORIDE 113 mmol/L (98-107); GLUCOSE 116 mg/dL (75-110)
--- NOTE | 2020-03-03 13:58 | RADIOLOGY REPORT (SQ) ---
EXAM DESCRIPTION: VENOUS UNILATERAL LOWER IMAGES COMPLETED DATE/TIME: 03/03/2020 1:36 pm REASON FOR STUDY: rule out DVT (RIGHT) COMPARISON: None. TECHNIQUE: Dynamic and static hernandez scale and color images acquired of the right leg venous system. S elected spectral images acquired with additional compression and augmentation maneuvers. The contrala teral common femoral vein and saphenofemoral junction were also imaged. Images stored on PACS. LIMITATIONS: None. FINDINGS: COMMON FEMORAL: Acute thrombus FEMORAL: Acute thrombus POPLITEAL: Patent but acute thrombus CALF VESSELS: Extensive edema. Suspect thrombus. GSV and SSV: Normal compression, augmentation. No visualized echogenic material on hernandez scale. No def ects on color images. ANY DEEP VENOUS INSUFFICIENCY: Not evaluated. ANY EVIDENCE OF POPLITEAL CYST: No. OTHER: Marked edema CONTRALATERAL COMMON FEMORAL VEIN AND SAPHENOFEMORAL JUNCTION: Not performed IMPRESSION: Acute DVT common femoral to calf muscles on the left COMMENT: Pertinent findings on the imaging study reported as a CRITICAL RESULT to GAYE castanon t13:51 on 03/03/2020. Category of Critical Result: Acute DVT TECHNICAL DOCUMENTATION: JOB ID: [id number] 2010 [employer]- All Rights Reserved Reading location - IP/workstation name: [email or web address]
--- NOTE | 2020-03-03 16:55 | PDOC PROGRESS REPORT ---
Subjective Progress Note for:: 03/03/20 Subjective:: Patient evaluated on morning rounds. She is resting in bed seen drinking water and eating ice. Pt eports long standing back pain, spending most time in wheelchair or in bed at her baseline. She tells me decreased neck ROM is her baseline, reporting history of multiple injections in her back approximately x1 year ago. When asked to clarify she is unable to. She tells me that she lives with her son. Reports last alcoholic beverage on 02/26/2020. Refuses to clarify how many alcoholic beverages consumed daily. Denies supplemental O2 at home. Further denies headache, chest pain, SOB, cough, abd pain, NVD, lower extremity pain or weakness. Prior to evaluating pt nurse contacted me, pt c/o bilateral lower extremity pain, R>L with RLE > LLE size with associated warmth and erythema. As reported by nurse: RLE below the knee measurement 51.5cm, mid calf 44cm. Left below the knee 42.5cm, mid calf 36cm. Pt with hx smoking, requesting nicotine patch. Reason For Visit: ALTERED MENTAL STATUS,SEPSIS,SUSPECTED INFECTIOUS Physical Exam Vital Signs: Temp Pulse Resp BP Pulse Ox 99.1 F 92 16 132/81 H 96 03/03/20 14:00 03/03/20 14:00 03/03/20 14:00 03/03/20 14:00 03/03/20 14:00 Intake & Output 03/02/20 03/03/20 03/04/20 06:59 06:59 06:59 Intake Total 1485 890 797 Output Total 600 545 Balance 1485 290 252 Weight 109 kg 114 kg General appearance: PRESENT: no acute distress, cooperative, hard of hearing, o bese Head exam: PRESENT: atraumatic, normocephalic Eye exam: PRESENT: EOMI. ABSENT: scleral icterus Mouth exam: PRESENT: dry mucosa, tongue midline Neck exam: ABSENT: full ROM, JVD, tenderness, thyromegaly Respiratory exam: PRESENT: decreased breath sounds - Left lung field, Associated wheezes., wheezes - Left lung win. ABSENT: chest wall tenderness, tachypnea, unlabored Cardiovascular exam: PRESENT: RRR, +S1, +S2. ABSENT: diastolic murmur, irregular rhythm, systolic murmur, tachycardia Pulses: PRESENT: normal radial pulses GI/Abdominal exam: PRESENT: soft. ABSENT: distended, firm, tenderness Gentrourinary exam: PRESENT: indwelling catheter Extremities exam: PRESENT: other - RLE > LLE in size. RLE with associated warmth and erythema. Musculoskeletal exam: ABSENT: ambulatory, deformity Neurological exam: PRESENT: alert, awake, oriented to person, oriented to place, oriented to time Psychiatric exam: PRESENT: appropriate affect, normal mood Skin exam: PRESENT: other - Skin bilateral lower extremities is dry, flaking and scailing. Hyperpigmentation consistent with chronic skin changes. Onychomycosis with all ten toes involved and associated thickening/discoloration.. ABSENT: normal color, rash Results Laboratory Results: 03/03/20 06:38 03/03/20 12:54 03/03/20 03/03/20 03/03/20 06:38 12:54 12:54 WBC 8.3 RBC 3.80 Hgb 13.3 Hct 39.0 MCV 103 H MCH 35.0 H MCHC 34.1 RDW 17.2 H Plt Count 116 L Seg Neutrophils % 80.7 H Sodium 142.8 Potassium 4.0 Chloride 113 H Carbon Dioxide 20 L Anion Gap 10 BUN 33 H Creatinine 1.07 Est GFR ( Amer) > 60 Glucose 116 H Calcium 8.3 L Magnesium 1.5 L Ammonia 16.7 03/01/20 03/01/20 16:45 20:38 Troponin I 0.046 0.042 Impressions: Chest X-Ray 03/01/20 16:19 IMPRESSION: NO ACUTE RADIOGRAPHIC FINDING IN THE CHEST. Head CT 03/01/20 16:32 IMPRESSION: Suspected hydrocephalus. NPH? Other cause such as aqueduct stenosis? Consider MRI. No old studies for comparison. TECHNICAL DOCUMENTATION: Quality ID # 436: Final reports with documentation of one or more dose reduction techniques (e.g., Automated exposure control, adjustment of the mA and/or kV according to patient size, use of iterative reconstruction technique) copyright 2011 [employer]- All Rights Reserved Head MRI 03/02/20 00:00 IMPRESSION: Extremely limited brain MRI exam due to motion artifact. No large territory acute ischemic change. Mild ventriculomegaly out of proportion to sulci and sylvian fissures. Hemisp heric chronic white matter disease. EVIDENCE OF ACUTE STROKE: NO. Lumbar Puncture 03/02/20 00:00 IMPRESSION: Lumbar puncture under fluoroscopy. No immediate complication. Only obtained 0.5 mL CSF. Venous Doppler Study 03/03/20 00:00 IMPRESSION: Acute DVT common femoral to calf muscles on the left Assessment and Plan - Diagnosis (1) Right femoral vein DVT Qualifiers: Chronicity: acute Qualified Code(s): I82.411 - Acute embolism and thrombosis of right femoral vein Is this a current diagnosis for this admission?: Yes (2) Wheezing Is this a current diagnosis for this admission?: Yes (3) Sepsis Qualifiers: Sepsis type: sepsis due to unspecified organism Sepsis acute organ dysfunction status: unspecified Qualified Code(s): A41.9 - Sepsis, unspecified organism Is this a current diagnosis for this admission?: Yes (4) Acute metabolic encephalopathy Is this a current diagnosis for this admission?: Yes (5) Acute kidney injury Is this a current diagnosis for this admission?: Yes (6) Hypertension Is this a current diagnosis for this admission?: Yes (7) Hypokalemia Is this a current diagnosis for this admission?: Yes (8) Suspected COVID-19 virus infection Is this a current diagnosis for this admission?: Yes (9) Suspected infectious meningitis Is this a current diagnosis for this admission?: Yes (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 Initiate Eliquis 10mg BID x7 days, followed by 5mg BID continued therapy. Wheezing: Potentially secondary to PE. Eliquis as above. No signs of right heart strain on labs, ecg or imaging. No further work up required. Acute metabolic encephalopathy: Significant improved with IV fluids and abx. AMS on initial presentation. Likely secondary to combination of uremia, volume depletion and UTI. Meningoencephalitis: Ruled out. CSF Results, though limited, indicate CSF WBC 20. WNL as per CSF WBC correction in blood contaminated CSF. Due to limited sample unable to obtain CSF glucose or total protein. Head MRI without findings of miningeal inflammation. Discontinue vancomycin and ampicillin. Suspicion for viral encephalitis low, discontinue acyclovir. Sepsis: Resolved with IVF and abx Lactic acid 3.0 -> 1.7 WBC 11.8 -> 9.0 Acute kidney injury: Improved, likely cause of AMS on presentation BUN/creatinine was 41/2.73 (baseline of 0.52) -> 33/1.07 Continue IV hydration. Monitor on BMP. Renally dose medication and avoid nephrotoxic Hypertension: Cnt to hold antihypertensive medication due to JANET and volume depletion Hypokalemia: Resolved with potassium supplementation. Cnt to monitor. Hydrocephalus: CT head shows signs of hydrocephalus, likely NPH Patient has no signs of [place] triad suggestive of increased ICP Alcohol dependence: Serum alcohol <10 on presentation. Consistent mild CIWA scores. Cnt to monitor CIWA, treat per protocol. Tobacco dependence: Pt reports 1/2 ppd. Nicotine patch provided. Provide >3 minutes educational and emotional support regarding smoking cessation. - Time Time Spent with patient: 25-34 minutes Smoking Cessation Education: 3 to 10 minutes Medications reviewed and adjusted accordingly: Yes Anticipated Discharge Disposition: Nursing Home Facility Anticipated Discharge Timeframe: within 48 hours
[2020-03-03] MEDS ORDERED: MAGNESIUM SULFATE 4 GM/100 ML RTUPB IV ONE (17:00)
[2020-03-03] MEDS: APIXABAN 5 MG TABLET PO SCH ×2 (17:53→18:02)
[2020-03-04] MEDS: APIXABAN 5 MG TABLET PO SCH ×2 (05:08→17:45)
--- NOTE | 2020-03-04 06:24 | RADIOLOGY REPORT (SQ) ---
CHEST X-RAY 1 VIEW on 03/04/2020 at 5:39 AM CLINICAL INDICATION: Shortness of breath COMPARISON: 03/01/2020 FINDINGS: There are developing left greater than the right lower lung opacities consistent with areas of atelectasis and/or pneumonia, differential diagnosis would include aspiration and viral infections. Trace pleural effusions may be present. Vascular calcification is noted in the aorta. Heart is within normal limits for size. IMPRESSION: Developing left greater than right basilar atelectasis and/or pneumonia, differential diagnosis would include aspiration and viral infections.
[2020-03-04 06:37] LABS: ABSOLUTE LYMPHOCYTES (AUTO) 0.6 10^3/uL (0.5-4.7); ABSOLUTE MONOCYTES (AUTO) 0.3 10^3/uL (0.1-1.4); BASOPHILS % (AUTO) 0.2 % (0-2); HEMATOCRIT 36.6 % (36.0-47.0); HEMOGLOBIN 12.5 g/dL (12.0-15.5); LYMPHOCYTES % (AUTO) 15.2 % (13-45); MEAN CORPUSCULAR HEMOGLOBIN 35.5 pg (27.0-33.4); MEAN CORPUSCULAR HGB CONC 34.3 g/dL (32.0-36.0); MEAN CORPUSCULAR VOLUME 104 fl (80-97); MONOCYTES % (AUTO) 7.7 % (3-13); RED BLOOD COUNT 3.53 10^6/uL (3.72-5.28); RED CELL DISTRIBUTION WIDTH 16.8 % (11.5-14.0); SEGMENTED NEUTROPHILS % (AUTO) 75.9 % (42-78); TOTAL CELLS COUNTED % (AUTO) 100 %; WHITE BLOOD COUNT 3.9 10^3/uL (4.0-10.5)
[2020-03-04 07:05] LABS: ANION GAP 8 (5-19); BLOOD UREA NITROGEN 25 mg/dL (7-20); CALCIUM 8.4 mg/dL (8.4-10.2); CARBON DIOXIDE 24 mmol/L (22-30); CHLORIDE 106 mmol/L (98-107); GLUCOSE 107 mg/dL (75-110); POTASSIUM 3.7 mmol/L (3.6-5.0)
[2020-03-04 08:17] LABS: PLATELET COUNT 96 10^3/uL (150-450)
[2020-03-04] MEDS ORDERED: CEFTRIAXONE 1 GM/D5W RTU 1 GM/50 ML RTUPB IV SCH (10:00)
[2020-03-04] MEDS: THIAMINE HCL 100 MG TABLET PO SCH (10:37)
[2020-03-04] MEDS: FOLIC ACID 1 MG TABLET PO SCH (10:37)
[2020-03-04] MEDS: NICOTINE 14 MG/24 HR PATCH.TD24 TD SCH (10:37)
[2020-03-04] MEDS: IPRATROPIUM/ALBUTEROL 0.5-2.5 MG/3 ML AMPUL NEB SCH ×4 (11:55→23:37)
--- NOTE | 2020-03-04 16:48 | PDOC PROGRESS REPORT ---
Subjective Progress Note for:: 03/04/20 Subjective:: Patient resting upright in bed. She tells me that she is feeling significantly better than yesterday. Still complains of cough and shortness of breath. Denies PND or orthopnea. Patient reports hx of diarrhea with onset 2 days prior to arrival. Denies recent abx treatment. Denies recent exposure to illness. She is asking that I call her daughter Effie to update her on how she is doing. No further complaints or concerns. Contacted pt's daughter Susan via telephone. Discussed case. She tells me that her mother is followed by a home health agency with daily coverage. Mother uses a walker to ambulate at home, but her walker recently broke and they are in need of a new one. Mother previously seen by wound care for bilateral lower extremities but was recently cleared and is scheduled for a follow up. Pt has pumps for leg edema at home, reportedly non-compliant. Daughter requests a hospital bed as pt has difficulty getting into bed due to level/height of bed. Pt previously followed by home PT/OT but is not currently. Reason For Visit: ALTERED MENTAL STATUS,SEPSIS,SUSPECTED INFECTIOUS Physical Exam Vital Signs: Temp Pulse Resp BP Pulse Ox 98.1 F 92 28 H 139/122 H 92 03/04/20 08:21 03/04/20 11:55 03/04/20 11:55 03/04/20 05:28 03/04/20 11:55 Intake & Output 03/03/20 03/04/20 03/05/20 06:59 06:59 06:59 Intake Total 890 797 480 Output Total 600 1570 Balance 290 -773 480 Weight 114 kg 116.9 kg Additional comments: General appearance: PRESENT: no acute distress, cooperative, hard of hearing, obese Head exam: PRESENT: atraumatic, normocephalic Eye exam: PRESENT: EOMI. ABSENT: scleral icterus Mouth exam: PRESENT: dry mucosa, tongue midline Neck exam: ABSENT: full ROM, JVD, tenderness, thyromegaly Respiratory exam: PRESENT: decreased breath sounds - Left lung field, Associated wheezes. ABSENT: chest wall tenderness, tachypnea, unlabored Cardiovascular exam: PRESENT: RRR, +S1, +S2. ABSENT: diastolic murmur, irregular rhythm, systolic murmur, tachycardia Pulses: PRESENT: normal radial pulses GI/Abdominal exam: PRESENT: soft. ABSENT: distended, firm, tenderness Gentrourinary exam: PRESENT: indwelling catheter Extremities exam: PRESENT: other - RLE > LLE in size. RLE with associated warmth and erythema. Musculoskeletal exam: ABSENT: ambulatory, deformity Neurological exam: PRESENT: alert, awake, oriented to person, oriented to place, oriented to time Psychiatric exam: PRESENT: appropriate affect, normal mood Skin exam: PRESENT: other - Skin bilateral lower extremities is dry, flaking and scailing. Hyperpigmentation consistent with chronic skin changes. Onychomycosis with all ten toes involved and associated thickening/discoloration.. ABSENT: normal color, rash Results Laboratory Results: 03/04/20 06:22 03/04/20 06:22 03/04/20 03/04/20 06:22 06:22 WBC 3.9 L RBC 3.53 L Hgb 12.5 Hct 36.6 MCV 104 H MCH 35.5 H MCHC 34.3 RDW 16.8 H Plt Count 96 L Seg Neutrophils % 75.9 Sodium 138.2 Potassium 3.7 Chloride 106 Carbon Dioxide 24 Anion Gap 8 BUN 25 H Creatinine 0.86 Est GFR ( Amer) > 60 Glucose 107 Calcium 8.4 03/02/20 11:10 Nasophary ([facility] Only) MRSA Culture - Final NO MRSA RECOVERED 03/01/20 19:03 Clean Catch Midstream Urine Culture - Final Klebsiella Pneumoniae 03/01/20 03/01/20 16:45 20:38 Troponin I 0.046 0.042 Impressions: Head CT 03/01/20 16:32 IMPRESSION: Suspected hydrocephalus. NPH? Other cause such as aqueduct stenosis? Consider MRI. No old studies for comparison. TECHNICAL DOCUMENTATION: Quality ID # 436: Final reports with documentation of one or more dose reduction techniques (e.g., Automated exposure control, adjustment of the mA and/or kV according to patient size, use of iterative reconstruction technique) copyright 2011 [employer]- All Rights Reserved Head MRI 03/02/20 00:00 IMPRESSION: Extremely limited brain MRI exam due to motion artifact. No large territory acute ischemic change. Mild ventriculomegaly out of proportion to sulci and sylvian fissures. Hemispheric chronic white matter disease. EVIDENCE OF ACUTE STROKE: NO. Lumbar Puncture 03/02/20 00:00 IMPRESSION: Lumbar puncture under fluoroscopy. No immediate complication. Only obtained 0.5 mL CSF. Venous Doppler Study 03/03/20 00:00 IMPRESSION: Acute DVT common femoral to calf muscles on the left Chest X-Ray 03/04/20 00:00 IMPRESSION: Developing left greater than right basilar atelectasis and/or pneumonia, differential diagnosis would include aspiration and viral infections. Assessment and Plan - Diagnosis (1) Right femoral vein DVT Qualifiers: Chronicity: acute Qualified Code(s): I82.411 - Acute embolism and thrombosis of right femoral vein Is this a current diagnosis for this admission?: Yes (2) Wheezing Is this a current diagnosis for this admission?: Yes (3) Sepsis Qualifiers: Sepsis type: sepsis due to unspecified organism Sepsis acute organ dysfunction status: unspecified Qualified Code(s): A41.9 - Sepsis, unspecified organism Is this a current diagnosis for this admission?: Yes (4) Acute metabolic encephalopathy Is this a current diagnosis for this admission?: Yes (5) Acute kidney injury Is this a current diagnosis for this admission?: Yes (6) Hypertension Is this a current diagnosis for this admission?: Yes (7) Hypokalemia Is this a current diagnosis for this admission?: Yes (8) Suspected COVID-19 virus infection Is this a current diagnosis for this admission?: Yes (9) Suspected infectious meningitis Is this a current diagnosis for this admission?: Yes (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 Initiate Eliquis 10mg BID x7 days, followed by 5mg BID continued therapy at least x3 months. Wheezing: Potentially secondary to PE. Eliquis as above. No signs of right heart strain on labs, ecg or imaging. Repeat CXR completed as per night dr's order. Noted possible aspiration pneumonia vs atelectasis. Given pt hx retirement tobacco use initiate breathing treatments with duoneb q4 hours. Plan to dc home with Combivent inhaler. Consider prednisone if no improvement. Add incentive spirometry. Diarrhea: Per pt several day hx. Likely cause of her dehydration/JANET/AMS. Remove Flexiseal and monitor bowel movements. Pt without hx recent abx use. Hold off on CDIFF test, consider if diarrhea continues or worsens. Consider CT abdomen. Acute metabolic encephalopathy: Significant improved with IV fluids and abx. AMS on initial presentation. Likely secondary to combination of uremia, volume depletion and UTI. Meningoencephalitis: Ruled out. CSF Results, though limited, indicate CSF WBC 20. WNL as per CSF WBC correction in blood contaminated CSF. Due to limited sample unable to obtain CSF glucose or total protein. Head MRI without findings of miningeal inflammation. Discontinue vancomycin and ampicillin. Suspicion for viral encephalitis low, di scontinue acyclovir. Sepsis: Resolved with IVF and abx Lactic acid 3.0 -> 1.7 WBC 11.8 -> 9.0 Acute kidney injury: Improved, likely cause of AMS on presentation BUN/creatinine was 41/2.73 (baseline of 0.52) -> 33/1.07 Continue IV hydration. Monitor on BMP. Renally dose medication and avoid nephrotoxic Hypertension: Cnt to hold antihypertensive medication due to JANET and volume depletion Hypokalemia: Resolved with potassium supplementation. Cnt to monitor. Hydrocephalus: CT head shows signs of hydrocephalus, likely NPH. Patient has no signs of [place] triad suggestive of increased ICP Alcohol dependence: Serum alcohol <10 on presentation. Consistent mild CIWA scores. Cnt to monitor CIWA, treat per protocol. Tobacco dependence: Pt reports 1/2 ppd. Nicotine patch provided. Provide >3 minutes educational and emotional support regarding smoking cessation. PLAN: Remove [place] catheter and Flexiseal. Cnt hydration. Cnt abx. Implement breathing treatments. Monitor bowel movements, consider abd CT if no improvement. Plan to have home health with PT/OT/wound care, home with walker. Plan to discharge home in 24-48 hours. - Time Time Spent with patient: 35 or more minutes Smoking Cessation Education: 3 to 10 minutes Medications reviewed and adjusted accordingly: Yes Anticipated Discharge Disposition: Home with Home Health Anticipated Discharge Timeframe: within 48 hours
[2020-03-05] MEDS: IPRATROPIUM/ALBUTEROL 0.5-2.5 MG/3 ML AMPUL NEB SCH ×2 (04:20→07:44)
[2020-03-05] MEDS: APIXABAN 5 MG TABLET PO SCH ×2 (05:44→17:22)
[2020-03-05 05:59] LABS: HEMATOCRIT 31.7 % (36.0-47.0); MEAN CORPUSCULAR HEMOGLOBIN 35.4 pg (27.0-33.4); MEAN CORPUSCULAR HGB CONC 34.6 g/dL (32.0-36.0); MEAN CORPUSCULAR VOLUME 102 fl (80-97); PLATELET COUNT 106 10^3/uL (150-450); RED CELL DISTRIBUTION WIDTH 16.5 % (11.5-14.0); WHITE BLOOD COUNT 3.9 10^3/uL (4.0-10.5)
[2020-03-05 06:18] LABS: ANION GAP 8 (5-19); BLOOD UREA NITROGEN 18 mg/dL (7-20); CALCIUM 8.3 mg/dL (8.4-10.2); CARBON DIOXIDE 22 mmol/L (22-30); CHLORIDE 103 mmol/L (98-107); GLUCOSE 108 mg/dL (75-110); POTASSIUM 3.6 mmol/L (3.6-5.0)
[2020-03-05 06:58] LABS: ABSOLUTE LYMPHOCYTES# (MANUAL) 1.2 10^3/uL (0.5-4.7); ABSOLUTE MONOCYTES # (MANUAL) 0.5 10^3/uL (0.1-1.4); ANISOCYTOSIS SLIGHT; BASOPHILS % (MANUAL) 0 % (0-2); EOSINOPHILS % (MANUAL) 1 % (0-6); LYMPHOCYTES % (MANUAL) 32 % (13-45); MONOCYTES % (MANUAL) 13 % (3-13); PLATELET COMMENT DECREASED; POIKILOCYTOSIS SLIGHT; SEGMENTED NEUTROPHILS % (MAN) 54 % (42-78); STOMATOCYTES SLIGHT; TOTAL CELLS COUNTED 100
[2020-03-05] MEDS: NICOTINE 14 MG/24 HR PATCH.TD24 TD SCH (10:11)
[2020-03-05] MEDS: FOLIC ACID 1 MG TABLET PO SCH (10:11)
[2020-03-05] MEDS: THIAMINE HCL 100 MG TABLET PO SCH (10:11)
[2020-03-05] MEDS: NORMAL SALINE 1000 ML 1,000 ML IV PRN ×2 (10:12→21:42)
[2020-03-05] MEDS: ACETAMINOPHEN 325 MG TABLET PO PRN (10:14)
[2020-03-05] MEDS ORDERED: IPRATROPIUM/ALBUTEROL 0.5-2.5 MG/3 ML AMPUL NEB PRN (17:35)
--- NOTE | 2020-03-05 19:53 | PDOC DISCHARGE SUMMARY ---
Impression - Admit/DC Date/PCP Admission Date/Primary Care Provider: 03/02/20 00:08 MARISA BOTELLO NP Discharge Date: 03/05/20 - Discharge Diagnosis (1) Right femoral vein DVT Is this a current diagnosis for this admission?: Yes (2) Wheezing Is this a current diagnosis for this admission?: Yes (3) Sepsis Is this a current diagnosis for this admission?: Yes (4) Acute metabolic encephalopathy Is this a current diagnosis for this admission?: Yes (5) Acute kidney injury Is this a current diagnosis for this admission?: Yes (6) Hypertension Is this a current diagnosis for this admission?: Yes (7) Hypokalemia Is this a current diagnosis for this admission?: Yes (8) Suspected COVID-19 virus infection Is this a current diagnosis for this admission?: Yes (9) Suspected infectious meningitis Is this a current diagnosis for this admission?: Yes (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 Is this a current diagnosis for this admission?: Yes (11) Hydrocephalus Is this a current diagnosis for this admission?: Yes (12) Alcohol dependence Is this a current diagnosis for this admission?: Yes (13) Tobacco dependence Is this a current diagnosis for this admission?: Yes - Additional Information Resuscitation Status: Full Code Discharge Diet: As Tolerated Discharge Activity: Supervised Activity Referrals: MARISA BOTELLO NP, DESKTOP ENGINEER [Primary Care Provider] - Follow up as needed Prescriptions: Ipratropium/Albuterol Sulfate [Combivent Respimat 4 gm Mdi] 1 puff IH Q4 #1 aer.w.adap Apixaban [Eliquis 5 mg Tablet] 10 mg PO Q12H #140 tablet Home Medications: Apixaban [Eliquis 5 mg Tablet] 10 mg PO Q12H #140 tablet 03/05/20 Ipratropium/Albuterol Sulfate [Combivent Respimat 4 gm Mdi] 1 puff IH Q4 #1 aer.w.adap 03/05/20 History of Present Illiness History of Present Illness: As per admitting HPI 03/02/2020 "Patient is altered and history is per ER signout and chart review, attempt to reach patient's next of kin(son) with unsuccessful DAYRON MONTAGUE is a 59 year old female with a history of hypertension, hyperlipidemia and alcohol abuse was brought in by EMS for altered mental status which started 12 hours prior to presentation. According to her daughter Per ER signout, patient has been having neck pain and stiffness for the past few days. She also reported that she thinks people have been giving her alcohol at their house. On arrival patient was found to be lethargic but arousable with noxious stimuli, she had labored breathing. She was tachycardic, tachypneic and had a fever of 102.5. She was given a dose of vancomycin and ceftriaxone at the ER. No sick contact history is known." Hospital Course Hospital Course: Right Femoral DVT: Venous dopple RLE: acute thrombus common femoral, popliteal and calf vessels. Initiate Eliquis 10mg BID x7 days, followed by 5mg BID continued therapy at least x3 months. Wheezing: Potentially secondary to PE. Eliquis as above. No signs of right heart strain on labs, ecg or imaging. Repeat CXR completed as per night dr's order. Noted possible aspiration pneumonia vs atelectasis. 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 Dc home with Combivent inhaler. Diarrhea: Per pt several day hx. Likely cause of her dehydration/JANET/AMS. Resolved prior to discharge. Acute metabolic encephalopathy: Significant improved with IV fluids and abx. AMS on initial presentation. Likely secondary to combination of uremia, volume depletion and UTI. Meningoencephalitis: Ruled out. CSF Results, though limited, indicate CSF WBC 20. WNL as per CSF WBC correction in blood contaminated CSF. Due to limited sample unable to obtain CSF glucose or total protein. Head MRI without findings of miningeal inflammation. Discontinue vancomycin and ampicillin. Suspicion for viral encephalitis low, discontinue acyclovir. Sepsis: Resolved with IVF and abx Lactic acid 3.0 -> 1.7. WBC 11.8 -> 9.0 Acute kidney injury: Improved, likely cause of AMS on presentation BUN/creatinine was 41/2.73 (baseline of 0.52) -> 33/1.07 Continue IV hydration. Monitor on BMP. Renally dose medication and avoid nephro toxic Hypokalemia: Resolved with potassium supplementation. Hydrocephalus: CT head shows signs of hydrocephalus, likely NPH. Patient has no signs of [place] triad suggestive of increased ICP Alcohol dependence: Serum alcohol <10 on presentation. Consistent mild CIWA scores. Cnt to monitor CIWA, treat per protocol. Tobacco dependence: Pt reports 1/2 ppd. Nicotine patch provided. Provide >3 minutes educational and emotional support regarding smoking cessation. Physical Exam Vital Signs: Temp Pulse Resp BP Pulse Ox 98.6 F 95 18 120/58 L 100 03/05/20 12:03 03/05/20 14:00 03/05/20 12:03 03/05/20 12:03 03/05/20 12:03 Intake & Output 03/04/20 03/05/20 03/06/20 06:59 06:59 06:59 Intake Total 797 1090 8156 Output Total 1570 Balance -773 1090 8156 Weight 116.9 kg 119 kg Additional comments: General appearance: PRESENT: no acute distress, cooperative, hard of hearing, obese Head exam: PRESENT: atraumatic, normocephalic Eye exam: PRESENT: EOMI. ABSENT: scleral icterus Mouth exam: PRESENT: dry mucosa, tongue midline Neck exam: ABSENT: full ROM, JVD, tenderness, thyromegaly Respiratory exam: PRESENT: Lungs are CTA bilaterally. ABSENT: chest wall tenderness, tachypnea, unlabored Cardiovascular exam: PRESENT: RRR, +S1, +S2. ABSENT: diastolic murmur, irregular rhythm, systolic murmur, tachycardia Pulses: PRESENT: normal radial pulses GI/Abdominal exam: PRESENT: soft. ABSENT: distended, firm, tenderness Gentrourinary exam: PRESENT: indwelling catheter Extremities exam: PRESENT: other - RLE > LLE in size. RLE with associated warmth and erythema. Musculoskeletal exam: ABSENT: ambulatory, deformity Neurological exam: PRESENT: alert, awake, oriented to person, oriented to place, oriented to time Psychiatric exam: PRESENT: appropriate affect, normal mood Skin exam: PRESENT: other - Skin bilateral lower extremities is dry, flaking and scailing. Hyperpigmentation consistent with chronic skin changes. Onychomycosis with all ten toes involved and associated thickening/discoloration.. ABSENT: normal color, rash Results Laboratory Results: WBC 3.9 10^3/uL (4.0-10.5) L 03/05/20 05:27 RBC 3.10 10^6/uL (3.72-5.28) L 03/05/20 05:27 Hgb 11.0 g/dL (12.0-15.5) L 03/05/20 05:27 Hct 31.7 % (36.0-47.0) L 03/05/20 05:27 MCV 102 fl (80-97) H 03/05/20 05:27 MCH 35.4 pg (27.0-33.4) H 03/05/20 05:27 MCHC 34.6 g/dL (32.0-36.0) 03/05/20 05:27 RDW 16.5 % (11.5-14.0) H 03/05/20 05:27 Plt Count 106 10^3/uL (150-450) L 03/05/20 05:27 Lymph % (Auto) Not Reportable 03/05/20 05:27 [place] % (Auto) Not Reportable 03/05/20 05:27 Eos % (Auto) Not Reportable 03/05/20 05:27 Baso % (Auto) Not Reportable 03/05/20 05:27 Absolute Neuts (auto) Not Reportable 03/05/20 05:27 Absolute Lymphs (auto) Not Reportable 03/05/20 05:27 Absolute Monos (auto) Not Reportable 03/05/20 05:27 Absolute Eos (auto) Not Reportable 03/05/20 05:27 Absolute Basos (auto) Not Reportable 03/05/20 05:27 Total Counted 100 03/05/20 05:27 Seg Neutrophils % Not Reportable 03/05/20 05:27 Seg Neuts % (Manual) 54 % (42-78) 03/05/20 05:27 Lymphocytes % (Manual) 32 % (13-45) 03/05/20 05:27 Monocytes % (Manual) 13 % (3-13) 03/05/20 05:27 Eosinophils % (Manual) 1 % (0-6) 03/05/20 05:27 Basophils % (Manual) 0 % (0-2) 03/05/20 05:27 Abs Neuts (Manual) 2.1 10^3/uL (1.7-8.2) 03/05/20 05:27 Abs Lymphs (Manual) 1.2 10^3/uL (0.5-4.7) 03/05/20 05:27 Abs Monocytes (Manual) 0.5 10^3/uL (0.1-1.4) 03/05/20 05:27 Absolute Eos (Manual) 0.0 10^3/uL (0.0-0.6) 03/05/20 05:27 Abs Basophils (Manual) 0.0 10^3/uL (0.0-0.2) 03/05/20 05:27 Platelet Comment DECREASED 03/05/20 05:27 Poikilocytosis SLIGHT 03/05/20 05:27 Anisocytosis SLIGHT 03/05/20 05:27 Stomatocytes SLIGHT 03/05/20 05:27 PT 15.5 SEC (11.4-15.4) H 03/01/20 16:45 INR 1.21 03/01/20 16:45 Sodium 132.8 mmol/L (137-145) L 03/05/20 05:27 Potassium 3.6 mmol/L (3.6-5.0) 03/05/20 05:27 Chloride 103 mmol/L (98-107) 03/05/20 05:27 Carbon Dioxide 22 mmol/L (22-30) 03/05/20 05:27 Anion Gap 8 (5-19) 03/05/20 05:27 BUN 18 mg/dL (7-20) 03/05/20 05:27 Creatinine 0.80 mg/dL (0.52-1.25) 03/05/20 05:27 Est GFR ( Amer) > 60 (>60) 03/05/20 05:27 Est GFR (MDRD) Non-Af > 60 (>60) 03/05/20 05:27 Glucose 108 mg/dL (75-110) 03/05/20 05:27 POC Glucose 85 mg/dL (70-110) 03/03/20 06:04 Lactic Acid 2.0 mmol/L (0.7-2.1) 03/01/20 23:07 Calcium 8.3 mg/dL (8.4-10.2) L 03/05/20 05:27 Magnesium 1.5 mg/dL (1.6-2.3) L 03/03/20 12:54 Total Bilirubin 6.8 mg/dL (0.2-1.3) H 03/01/20 16:45 Direct Bilirubin 2.2 mg/dL (0.0-0.4) H 03/01/20 16:45 Neonat Total Bilirubin Not Reportable 03/01/20 16:45 Neonat Direct Bilirubin Not Reportable 03/01/20 16:45 Neonat Indirect Bili Not Reportable 03/01/20 16:45 AST 165 U/L (14-36) H 03/01/20 16:45 ALT 40 U/L (<35) H 03/01/20 16:45 Alkaline Phosphatase 97 U/L (38-126) 03/01/20 16:45 Ammonia 16.7 umol/L (9-33) 03/03/20 12:54 Troponin I 0.042 ng/mL 03/01/20 20:38 Total Protein 8.6 g/dL (6.3-8.2) H 03/01/20 16:45 Albumin 3.8 g/dL (3.5-5.0) 03/01/20 16:45 Urine Color YELLOW 03/01/20 19:03 Urine Appearance CLOUDY 03/01/20 19:03 Urine pH 5.0 (5.0-9.0) 03/01/20 19:03 Ur Specific [place] 1.019 03/01/20 19:03 Urine Protein >=500 mg/dL (NEGATIVE) H 03/01/20 19:03 Urine Glucose (UA) NEGATIVE mg/dL (NEGATIVE) 03/01/20 19:03 Urine Ketones NEGATIVE mg/dL (NEGATIVE) 03/01/20 19:03 Urine Blood LARGE (NEGATIVE) H 03/01/20 19:03 Urine Nitrite (Reflex) NEGATIVE (NEGATIVE) 03/01/20 19:03 Urine Bilirubin NEGATIVE (NEGATIVE) 03/01/20 19:03 Urine Urobilinogen 2.0 mg/dL (<2.0) H 03/01/20 19:03 Leukocyte Esterase Rfl MODERATE (NEGATIVE) H 03/01/20 19:03 Urine RBC (Auto) 41 /HPF 03/01/20 19:03 U Hyaline Cast (Auto) 20 /LPF 03/01/20 19:03 Urine Bacteria (Auto) 3+ /HPF 03/01/20 19:03 Urine WBC (Reflex) 148 /HPF 03/01/20 19:03 Urine WBC Clumps FEW /HPF 03/01/20 19:03 Squamous Epi Cells Auto 4 /HPF 03/01/20 19:03 U Non-Squamous Epis Auto 1 /HPF 03/01/20 19:03 Urine Mucus (Auto) FEW /LPF 03/01/20 19:03 Urine Creatinine 345.8 mg/dL (15-278) H 03/01/20 19:03 Urine Sodium 28 mmol/L (30-90) L 03/01/20 19:03 Urine Ascorbic Acid NEGATIVE (NEGATIVE) 03/01/20 19:03 Fluid Tube Number 1 03/02/20 12:50 CSF Volume 0.5 CC 03/02/20 12:50 CSF WBC 20 /uL (0-5) H 03/02/20 12:50 CSF RBC 766 /uL (0-10) 03/02/20 12:50 CSF Color (1) LIGHT YELLOW 03/02/20 12:50 CSF Appearance (1) CLEAR 03/02/20 12:50 CSF Mononuclear Cells 91 % 03/02/20 12:50 CSF Polymorphonuclear 9 % 03/02/20 12:50 CSF Glucose Cancelled 03/02/20 12:50 CSF Total Protein Cancelled 03/02/20 12:50 Serum Alcohol < 10 mg/dL (NONE DETECTED) 03/01/20 16:45 COVID-19 Source See comment 03/02/20 09:41 COVID-19 (YONATHAN) Not Detected (Not Detect) 03/02/20 09:41 Herpes Simplex Source Cancelled 03/02/20 12:50 HSV I DNA PCR Cancelled 03/02/20 12:50 HSV II DNA PCR Cancelled 03/02/20 12:50 Influenza A (Rapid) NEGATIVE (NEGATIVE) 03/01/20 20:30 Influenza B (Rapid) NEGATIVE (NEGATIVE) 03/01/20 20:30 03/01/20 03/01/20 16:45 20:38 Troponin I 0.046 0.042 Impressions: Chest X-Ray 03/01/20 16:19 IMPRESSION: NO ACUTE RADIOGRAPHIC FINDING IN THE CHEST. Head CT 03/01/20 16:32 IMPRESSION: Suspected hydrocephalus. NPH? Other cause such as aqueduct stenosis? Consider MRI. No old studies for comparison. TECHNICAL DOCUMENTATION: Quality ID # 436: Final reports with documentation of one or more dose reduction techniques (e.g., Automated exposure control, adjustment of the mA and/or kV according to patient size, use of iterative reconstruction technique) copyright 2011 [employer]- All Rights Reserved Head MRI 03/02/20 00:00 IMPRESSION: Extremely limited brain MRI exam due to motion artifact. No large territory acute ischemic change. Mild ventriculomegaly out of proportion to sulci and sylvian fissures. Hemispheric chronic white matter disease. EVIDENCE OF ACUTE STROKE: NO. Lumbar Puncture 03/02/20 00:00 IMPRESSION: Lumbar puncture under fluoroscopy. No immediate complication. Only obtained 0.5 mL CSF. Venous Doppler Study 03/03/20 00:00 IMPRESSION: Acute DVT common femoral to calf muscles on the left Chest X-Ray 03/04/20 00:00 IMPRESSION: Developing left greater than right basilar atelectasis and/or pneumonia, differential diagnosis would include aspiration and viral infections. Plan Plan of Treatment: 1. Your altered mental status was likely from dehydration in combination with your urinary tract infection. We saw a huge improvement in your mental status with intravenous fluids. Please make it a point to drink lots of fluids at home! 2. We found that you had an infection in your urine. This was treated with a course of antibiotics. You completed this course in full at the hospital and there is no further treatment needed. 3. Your shortness of breath improved with routine breathing treatments. I have provided you with a prescription for an inhaler. You can take one puff of this every fours hours as needed for relief of any shortness of breath. 4. Blood clot right lower extremity. Your right leg was much bigger than your left leg and imaging showed there was a clot in the vein of your right leg. For this we have started you on Eliquis. Please take Eliquis 10mg twice daily for five days, then take Eliquis 5mg twice daily for every day following for three months time. - You may bleed more easily. Be careful and avoid injury. - If you call and hurt yourself or hit your head, call your doctor right away, Talk with your doctor even if you feel fine. - Please AVOID taking NSAID medications (Ibuprofen these medications together can cause increase risk of bleed. - It is VERY IMPORTANT that you take this medication as prescribed every single day. 5. We have contacted your home health agency. They are aware that you will be needing home health physical therapy, occupation therapy, medication management, and wound care. Time Spent: Greater than 30 Minutes Stroke Is this a Stroke Patient?: No Acute Heart Failure Is this a Heart Failure Patient?: No
[2020-03-06] MEDS: APIXABAN 5 MG TABLET PO SCH ×2 (05:57→17:30)
[2020-03-06 06:39] LABS: ANION GAP 7 (5-19); BLOOD UREA NITROGEN 14 mg/dL (7-20); CALCIUM 8.5 mg/dL (8.4-10.2); CARBON DIOXIDE 25 mmol/L (22-30); CHLORIDE 105 mmol/L (98-107); GLUCOSE 108 mg/dL (75-110); POTASSIUM 3.9 mmol/L (3.6-5.0)
[2020-03-06] MEDS: NICOTINE 14 MG/24 HR PATCH.TD24 TD SCH (09:44)
[2020-03-06] MEDS: THIAMINE HCL 100 MG TABLET PO SCH (09:44)
[2020-03-06] MEDS: FOLIC ACID 1 MG TABLET PO SCH (09:45)
--- NOTE | 2020-03-06 11:07 | PDOC PROGRESS REPORT ---
Subjective Date:: 03/06/20 Subjective:: Somewhat sleepy. She states she did not sleep well at all last night. She is s till requiring oxygen this morning. Reason For Visit: ALTERED MENTAL STATUS,SEPSIS,SUSPECTED INFECTIOUS Physical Exam Vital Signs: Temp Pulse Resp BP Pulse Ox 98.6 F 101 H 18 146/80 H 90 L 03/06/20 07:57 03/06/20 07:57 03/06/20 07:57 03/06/20 07:57 03/06/20 07:57 Intake & Output 03/05/20 03/06/20 03/07/20 06:59 06:59 06:59 Intake Total 1090 73147 Balance 1090 45348 Weight 119 kg 118.2 kg General appearance: PRESENT: no acute distress, cooperative, well-developed Ear exam: PRESENT: normal external ear exam. ABSENT: bleeding, drainage Mouth exam: PRESENT: moist, tongue midline Neck exam: ABSENT: carotid bruit, JVD, lymphadenopathy Respiratory exam: PRESENT: rhonchi - Faint rhonchi right base, symmetrical, unlabored, wheezes - Faint expiratory on the left. ABSENT: accessory muscle use, rales, tachypnea Cardiovascular exam: PRESENT: RRR, +S1, +S2. ABSENT: bradycardia, diastolic murmur, irregular rhythm, systolic murmur, tachycardia GI/Abdominal exam: PRESENT: normal bowel sounds, soft. ABSENT: guarding, tenderness Rectal exam: PRESENT: deferred Gentrourinary exam: ABSENT: indwelling catheter Musculoskeletal exam: PRESENT: normal inspection Neurological exam: PRESENT: alert, awake, oriented to person, oriented to place, oriented to time, oriented to situation. ABSENT: altered Psychiatric exam: PRESENT: flat affect - Slightly somnolent. ABSENT: agitated, anxious Focused psych exam: ABSENT: delusional, paranoid, restlessness Skin exam: PRESENT: dry, normal color, warm. ABSENT: rash Results Laboratory Results: 03/05/20 05:27 03/06/20 05:20 03/06/20 05:20 Sodium 137.0 Potassium 3.9 Chloride 105 Carbon Dioxide 25 Anion Gap 7 BUN 14 Creatinine 0.71 Est GFR ( Amer) > 60 Glucose 108 Calcium 8.5 03/02/20 12:50 Cerebral Spinal Fluid - Csf Gram Stain - Final 03/02/20 12:50 Cerebral Spinal Fluid - Csf CSF Culture - Final NO GROWTH 3 DAYS 03/01/20 03/01/20 16:45 20:38 Troponin I 0.046 0.042 Impressions: Head CT 03/01/20 16:32 IMPRESSION: Suspected hydrocephalus. NPH? Other cause such as aqueduct stenosis? Consider MRI. No old studies for comparison. TECHNICAL DOCUMENTATION: Quality ID # 436: Final reports with documentation of one or more dose reduction techniques (e.g., Automated exposure control, adjustment of the mA and/or kV according to patient size, use of iterative reconstruction technique) copyright 2011 [employer]- All Rights Reserved Head MRI 03/02/20 00:00 IMPRESSION: Extremely limited brain MRI exam due to motion artifact. No large territory acute ischemic change. Mild ventriculomegaly out of proportion to sulci and sylvian fissures. Hemispheric chronic white matter disease. EVIDENCE OF ACUTE STROKE: NO. Lumbar Puncture 03/02/20 00:00 IMPRESSION: Lumbar puncture under fluoroscopy. No immediate complication. Only obtained 0.5 mL CSF. Venous Doppler Study 03/03/20 00:00 IMPRESSION: Acute DVT common femoral to calf muscles on the left Chest X-Ray 03/04/20 00:00 IMPRESSION: Developing left greater than right basilar atelectasis and/or pneumonia, differential diagnosis would include aspiration and viral infections. Assessment and Plan - Diagnosis (1) Right femoral vein DVT Qualifiers: Chronicity: acute Qualified Code(s): I82.411 - Acute embolism and thrombosis of right femoral vein Is this a current diagnosis for this admission?: Yes (2) Wheezing Is this a current diagnosis for this admission?: Yes (3) Sepsis Qualifiers: Sepsis type: sepsis due to unspecified organism Sepsis acute organ dysfunction status: unspecified Qualified Code(s): A41.9 - Sepsis, unspecified organism Is this a current diagnosis for this admission?: Yes (4) Acute metabolic encephalopathy Is this a current diagnosis for this admission?: Yes (5) Acute kidney injury Is this a current diagnosis for this admission?: Yes (6) Hypertension Is this a current diagnosis for this admission?: Yes (7) Hypokalemia Is this a current diagnosis for this admission?: Yes (8) Suspected COVID-19 virus infection Is this a current diagnosis for this admission?: Yes (9) Suspected infectious meningitis Is this a current diagnosis for this admission?: Yes (10) Alcohol dependence Is this a current diagnosis for this admission?: Yes (11) Hydrocephalus Is this a current diagnosis for this admission?: Yes (12) Meningoencephalitis Is this a current diagnosis for this admission?: Yes (13) Tobacco dependence Is this a current diagnosis for this admission?: Yes (14) Urinary tract infection due to Klebsiella species Is this a current diagnosis for this admission?: Yes - Plan Summary Summary: Right Femoral DVT: Venous dopple RLE: acute thrombus common femoral, popliteal and calf vessels. Initiate Eliquis 10mg BID x7 days, followed by 5mg BID continued therapy at least x3 months. Wheezing: Potentially secondary to PE. Eliquis as above. No signs of right heart strain on labs, ecg or imaging. Repeat CXR completed as per night dr's order. Noted possible aspiration pneumonia vs atelectasis. 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 Plan to dc home with Combivent inhaler. Consider prednisone if no improvement. Add incentive spirometry. Diarrhea: Per pt several day hx. Likely cause of her dehydration/JANET/AMS. Remove Flexiseal and monitor bowel movements. Pt without hx recent abx use. Hold off on CDIFF test, consider if diarrhea continues or worsens. Consider CT abdomen. Acute metabolic encephalopathy: Significant improved with IV fluids and abx. AMS on initial presentation. Likely secondary to combination of uremia, volume depletion and UTI. Meningoencephalitis: Ruled out. CSF Results, though limited, indicate CSF WBC 20. WNL as per CSF WBC correction in blood contaminated CSF. Due to limited sample unable to obtain CSF glucose or total protein. Head MRI without findings of miningeal inflammation. Discontinue vancomycin and ampicillin. Suspicion for viral encephalitis low, discontinue acyclovir. Sepsis: Resolved with IVF and abx Lactic acid 3.0 -> 1.7 WBC 11.8 -> 9.0 Acute kidney injury: Improved, likely cause of AMS on presentation BUN/creatinine was 41/2.73 (baseline of 0.52) -> 33/1.07 Continue IV hydration. Monitor on BMP. Renally dose medication and avoid nephrotoxic Hypertension: Cnt to hold antihypertensive medication due to JANET and volume depletion Hypokalemia: Resolved with potassium supplementation. Cnt to monitor. Hydrocephalus: CT head shows signs of hydrocephalus, likely NPH. Patient has no signs of [place] triad suggestive of increased ICP Alcohol dependence: Serum alcohol <10 on presentation. Consistent mild CIWA scores. Cnt to monitor CIWA, treat per protocol. Tobacco dependence: Pt reports 1/2 ppd. Nicotine patch provided. Provide >3 minutes educational and emotional support regarding smoking cessation. 03/06/2020 Klebsiella urinary tract infection: Microbiology results show Klebsiella infection. I started the patient on ceftriaxone. The Klebsiella urinary tract infection contributed to the sepsis and metabolic encephalopathy as well. Wheezing: The patient is started on ceftriaxone as noted above. Some rhonchi at the right base. Wheezing on the left. Will repeat chest x-ray, initiate prednisone and scheduled as well as as needed nebulizer treatments. With smoking history consider COPD. Further testing as an outpatient. Will likely discharge with a dual medication inhaler. NB: I did speak with the patient's son Ahmet to alert him that I was going to be keeping Laure for another day. He was in agreement. Will reassess tomorrow. - Time Time Spent with patient: 15-24 minutes Medications reviewed and adjusted accordingly: Yes Anticipated Discharge Disposition: Home, Self Care Anticipated Discharge Timeframe: within 48 hours
[2020-03-06] MEDS ORDERED: LEVALBUTEROL HCL NEB 1.25 MG/3 ML AMPUL NEB PRN (11:08)
[2020-03-06 11:37] LABS: HEMATOCRIT 35.9 % (36.0-47.0); HEMOGLOBIN 12.1 g/dL (12.0-15.5); MEAN CORPUSCULAR HEMOGLOBIN 35.3 pg (27.0-33.4); MEAN CORPUSCULAR HGB CONC 33.8 g/dL (32.0-36.0); MEAN CORPUSCULAR VOLUME 105 fl (80-97); PLATELET COUNT 159 10^3/uL (150-450); RED BLOOD COUNT 3.44 10^6/uL (3.72-5.28); RED CELL DISTRIBUTION WIDTH 16.5 % (11.5-14.0); WHITE BLOOD COUNT 4.3 10^3/uL (4.0-10.5)
[2020-03-06 12:00] LABS: ABSOLUTE LYMPHOCYTES# (MANUAL) 0.9 10^3/uL (0.5-4.7); ABSOLUTE MONOCYTES # (MANUAL) 0.9 10^3/uL (0.1-1.4); BAND NEUTROPHILS % (MANUAL) 1 % (3-5); BASOPHILS % (MANUAL) 0 % (0-2); EOSINOPHILS % (MANUAL) 1 % (0-6); LYMPHOCYTES % (MANUAL) 20 % (13-45); MONOCYTES % (MANUAL) 21 % (3-13); SEGMENTED NEUTROPHILS % (MAN) 56 % (42-78); TOTAL CELLS COUNTED 100
[2020-03-06 12:01] LABS: ANISOCYTOSIS SLIGHT; PLATELET CLUMPS PRESENT; PLATELET COMMENT ADEQUATE
--- NOTE | 2020-03-06 12:27 | RADIOLOGY REPORT (SQ) ---
EXAM DESCRIPTION: CHEST SINGLE VIEW IMAGES COMPLETED DATE/TIME: 03/06/2020 11:00 am REASON FOR STUDY: Worsening respiratory failure COMPARISON: 03/04/2020 EXAM PARAMETERS: NUMBER OF VIEWS: One view. TECHNIQUE: Single frontal radiographic view of the chest acquired. RADIATION DOSE: NA LIMITATIONS: None. FINDINGS: LUNGS AND PLEURA: Small left effusion with improved aeration at the left lung base. No pn eumothorax. MEDIASTINUM AND HILAR STRUCTURES: No masses. Contour normal. HEART AND VASCULAR STRUCTURES: Heart normal in size. Normal vasculature. BONES: No acute findings. HARDWARE: None in the chest. OTHER: No other significant finding. IMPRESSION: Small left basilar effusion with improved aeration at the left lung base. TECHNICAL DOCUMENTATION: JOB ID: [id number] 2010 [employer]- All Rights Reserved Reading location - IP/workstation name: [email or web address]
[2020-03-06] MEDS: IPRATROPIUM/ALBUTEROL 0.5-2.5 MG/3 ML AMPUL NEB SCH (15:55)
[2020-03-06] MEDS: PREDNISONE 20 MG TABLET PO SCH (17:30)
[2020-03-06] MEDS: CEFTRIAXONE 1 GM/D5W RTU 1 GM/50 ML RTUPB IV SCH (17:31)
[2020-03-06] MEDS: NORMAL SALINE 1000 ML 1,000 ML IV PRN (17:44)
[2020-03-06] MEDS: FLUTICASONE/UMECLIDIN/VILANTER 100-62.5-25 MCG/DOSE IH SCH (17:45)
[2020-03-07] MEDS: IPRATROPIUM/ALBUTEROL 0.5-2.5 MG/3 ML AMPUL NEB SCH ×3 (00:10→15:43)
[2020-03-07] MEDS: APIXABAN 5 MG TABLET PO SCH (05:19)
[2020-03-07] MEDS: PREDNISONE 20 MG TABLET PO SCH (09:56)
[2020-03-07] MEDS: FOLIC ACID 1 MG TABLET PO SCH (09:56)
[2020-03-07] MEDS: CEFTRIAXONE 1 GM/D5W RTU 1 GM/50 ML RTUPB IV SCH (09:56)
[2020-03-07] MEDS: NICOTINE 14 MG/24 HR PATCH.TD24 TD SCH (09:56)
[2020-03-07] MEDS: FLUTICASONE/UMECLIDIN/VILANTER 100-62.5-25 MCG/DOSE IH SCH (09:57)
[2020-03-07] MEDS: THIAMINE HCL 100 MG TABLET PO SCH (09:57)
[2020-03-07] MEDS: ACETAMINOPHEN 325 MG TABLET PO PRN (10:02)
--- NOTE | 2020-03-07 13:33 | PDOC DISCHARGE SUMMARY ---
Impression - Admit/DC Date/PCP Admission Date/Primary Care Provider: 03/02/20 00:08 MARISA BOTELLO NP Discharge Date: 03/07/20 - Discharge Diagnosis (1) Right femoral vein DVT Is this a current diagnosis for this admission?: Yes (2) Wheezing Is this a current diagnosis for this admission?: Yes (3) Sepsis Is this a current diagnosis for this admission?: Yes (4) Acute metabolic encephalopathy Is this a current diagnosis for this admission?: Yes (5) Acute kidney injury Is this a current diagnosis for this admission?: Yes (6) Hypertension Is this a current diagnosis for this admission?: Yes (7) Hypokalemia Is this a current diagnosis for this admission?: Yes (8) Suspected COVID-19 virus infection Is this a current diagnosis for this admission?: Yes (9) Suspected infectious meningitis Is this a current diagnosis for this admission?: Yes (10) Alcohol dependence Is this a current diagnosis for this admission?: Yes (11) Hydrocephalus Is this a current diagnosis for this admission?: Yes (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 Initiate Eliquis 10mg BID x7 days, followed by 5mg BID continued therapy at least x3 months. Wheezing: Potentially secondary to PE. Eliquis as above. No signs of right heart strain on labs, ecg or imaging. Repeat CXR completed as per night dr's order. Noted possible aspiration pneumonia vs atelectasis. 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 Plan to dc home with Combivent inhaler. Consider prednisone if no improvement. Add incentive spirometry. Diarrhea: Per pt several day hx. Likely cause of her dehydration/JANET/AMS. Remove Flexiseal and monitor bowel movements. Pt without hx recent abx use. Hold off on CDIFF test, consider if diarrhea continues or worsens. Consider CT abdomen. Acute metabolic encephalopathy: Significant improved with IV fluids and abx. AMS on initial presentation. Likely secondary to combination of uremia, volume depletion and UTI. Meningoencephalitis: Ruled out. CSF Results, though limited, indicate CSF WBC 20. WNL as per CSF WBC correction in blood contaminated CSF. Due to limited sample unable to obtain CSF glucose or total protein. Head MRI without findings of miningeal inflammation. Discontinue vancomycin and ampicillin. Suspicion for viral encephalitis low, discontinue acyclovir. Sepsis: Resolved with IVF and abx Lactic acid 3.0 -> 1.7 WBC 11.8 -> 9.0 Acute kidney injury: Improved, likely cause of AMS on presentation BUN/creatinine was 41/2.73 (baseline of 0.52) -> 33/1.07 Continue IV hydration. Monitor on BMP. Renally dose medication and avoid nephrotoxic Hypertension: Cnt to hold antihypertensive medication due to JANET and volume depletion Hypokalemia: Resolved with potassium supplementation. Cnt to monitor. Hydrocephalus: CT head shows signs of hydrocephalus, likely NPH. Patient has no signs of Alin triad suggestive of increased ICP Alcohol dependence: Serum alcohol <10 on presentation. Consistent mild CIWA scores. Cnt to monitor CIWA, treat per protocol. Tobacco dependence: Pt reports 1/2 ppd. Nicotine patch provided. Provide >3 minutes educational and emotional support regarding smoking cessation. 03/06/2020 Klebsiella urinary tract infection: Microbiology results show Klebsiella infection. I started the patient on ceftriaxone. The Klebsiella urinary tract infection contributed to the sepsis and metabolic encephalopathy as well. Wheezing: The patient is started on ceftriaxone as noted above. Some rhonchi at the right base. Wheezing on the left. Will repeat chest x-ray, initiate prednisone and scheduled as well as as needed nebulizer treatments. With smoking history consider COPD. Further testing as an outpatient. Will likely discharge with a dual medication inhaler. NB: I did speak with the patient's son Ahmet to alert him that I was going to be keeping Dayron for another day. He was in agreement. Will reassess tomorrow. 03/07/2020 The patient is feeling well. She feels at her baseline. Her oxygen saturation remained at 92% on room air. She will in fact complete a longer course of antibiotic therapy for the urinary tract infection. For the exacerbation of COPD I opted for a prednisone taper and a daily Trelegy inhaler with a Combivent inhaler available if needed. She will otherwise continue her current medication regimen. Home health has been ordered as well. - Additional Information Resuscitation Status: Full Code Discharge Diet: As Tolerated Discharge Activity: Supervised Activity Referrals: MARISA BOTELLO HYDROELECTRIC PRODUCTION MANAGER, HYDROELECTRIC PRODUCTION MANAGER [Primary Care Provider] - 03/14/20 11:00 am Prescriptions: Cefuroxime Axetil [Ceftin 250 mg Tablet] 1 tab PO BID #20 tablet Ipratropium/Albuterol Sulfate [Combivent Respimat 4 gm Mdi] 1 puff IH Q4 #1 aer.w.adap Prednisone [Deltasone 10 mg Tablet] 10 mg PO ASDIR PRN #22 tablet PRN Reason: Apixaban [Eliquis 5 mg Tablet] 5 mg PO BID #60 tablet Apixaban [Eliquis 5 mg Tablet] 5 mg PO Q12H #60 tablet Nicotine [Nicoderm 14 mg/24 Hr Transdermal Patch] 1 patch TD DAILY #14 patch.td24 Fluticasone/Umeclidin/Vilanter [Trelegy 100-62.5-25 Mcg Ellipta 14 Dose/Dpi] 1 inh IH DAILY #1 inhaler Home Medications: Ipratropium/Albuterol Sulfate [Combivent Respimat 4 gm Mdi] 1 puff IH Q4 #1 aer.w.adap 03/05/20 Apixaban [Eliquis 5 mg Tablet] 5 mg PO BID #60 tablet 03/06/20 Apixaban [Eliquis 5 mg Tablet] 5 mg PO Q12H #60 tablet 03/07/20 Cefuroxime Axetil [Ceftin 250 mg Tablet] 1 tab PO BID #20 tablet 03/07/20 Fluticasone/Umeclidin/Vilanter [Trelegy 100-62.5-25 Mcg Ellipta 14 Dose/Dpi] 1 inh IH DAILY #1 inhaler 03/07/20 Nicotine [Nicoderm 14 mg/24 Hr Transdermal Patch] 1 patch TD DAILY #14 patch.td24 03/07/20 Prednisone [Deltasone 10 mg Tablet] 10 mg PO ASDIR PRN #22 tablet 03/07/20 History of Present Illiness History of Present Illness: DAYRON MONTAGUE is a 59 year old female with a history of hypertension, hyperlipidemia and alcohol abuse was brought in by EMS for altered mental status which started 12 hours prior to presentation. According to her daughter Per ER signout, patient has been having neck pain and stiffness for the past few days. She also reported that she thinks people have been giving her alcohol at their house. On arrival patient was found to be lethargic but arousable with noxious stimuli, she had labored breathing. She was tachycardic, tachypneic and had a fever of 102.5. She was given a dose of vancomycin and ceftriaxone at the ER. No sick contact history is known. Hospital Course Hospital Course: Right Femoral DVT: Venous dopple RLE: acute thrombus common femoral, popliteal and calf vessels. Initiate Eliquis 10mg BID x7 days, followed by 5mg BID continued therapy at least x3 months. Wheezing: Potentially secondary to PE. Eliquis as above. No signs of right heart strain on labs, ecg or imaging. Repeat CXR completed as per night dr's order. Noted possible aspiration pneumonia vs atelectasis. 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 Dc home with Combivent inhaler. Diarrhea: Per pt several day hx. Likely cause of her dehydration/JANET/AMS. Resolved prior to discharge. Acute metabolic encephalopathy: Significant improved with IV fluids and abx. AMS on initial presentation. Likely secondary to combination of uremia, volume depletion and UTI. Meningoencephalitis: Ruled out. CSF Results, though limited, indicate CSF WBC 20. WNL as per CSF WBC correction in blood contaminated CSF. Due to limited sample unable to obtain CSF glucose or total protein. Head MRI without findings of miningeal inflammation. Discontinue vancomycin and ampicillin. Suspicion for viral encephalitis low, discontinue acyclovir. Sepsis: Resolved with IVF and abx Lactic acid 3.0 -> 1.7. WBC 11.8 -> 9.0 Acute kidney injury: Improved, likely cause of AMS on presentation BUN/creatinine was 41/2.73 (baseline of 0.52) -> 33/1.07 Continue IV hydration. Monitor on BMP. Renally dose medication and avoid nephrotoxic Hypokalemia: Resolved with potassium supplementation. Hydrocephalus: CT head shows signs of hydrocephalus, likely NPH. Patient has no signs of Alin triad suggestive of increased ICP Alcohol dependence: Serum alcohol <10 on presentation. Consistent mild CIWA scores. Cnt to monitor CIWA, treat per protocol. Tobacco dependence: Pt reports 1/2 ppd. Nicotine patch provided. Provide >3 minutes educational and emotional support regarding smoking cessation. See additional details above as well Physical Exam Vital Signs: Temp Pulse Resp BP Pulse Ox 98.3 F 105 H 18 123/57 L 99 03/07/20 11:31 03/07/20 11:31 03/07/20 11:31 03/07/20 11:31 03/07/20 11:31 Intake & Output 03/06/20 03/07/20 03/08/20 06:59 06:59 06:59 Intake Total [id number] 0104 Balance 30308 3342 Weight 118.2 kg 116.8 kg General appearance: PRESENT: no acute distress Respiratory exam: PRESENT: symmetrical, unlabored. ABSENT: rales, rhonchi, tachypnea, wheezes Cardiovascular exam: PRESENT: RRR, +S1, +S2. ABSENT: bradycardia, diastolic murmur, irregular rhythm, systolic murmur, tachycardia GI/Abdominal exam: PRESENT: normal bowel sounds, soft. ABSENT: tenderness Rectal exam: PRESENT: deferred Neurological exam: PRESENT: alert, awake, oriented to person, oriented to place, oriented to situation Psychiatric exam: PRESENT: appropriate affect. ABSENT: agitated, anxious Focused psych exam: ABSENT: delusional, paranoid, restlessness Results Laboratory Results: WBC 4.3 10^3/uL (4.0-10.5) 03/06/20 05:20 RBC 3.44 10^6/uL (3.72-5.28) L 03/06/20 05:20 Hgb 12.1 g/dL (12.0-15.5) 03/06/20 05:20 Hct 35.9 % (36.0-47.0) L 03/06/20 05:20 MCV 105 fl (80-97) H 03/06/20 05:20 MCH 35.3 pg (27.0-33.4) H 03/06/20 05:20 MCHC 33.8 g/dL (32.0-36.0) 03/06/20 05:20 RDW 16.5 % (11.5-14.0) H 03/06/20 05:20 Plt Count 159 10^3/uL (150-450) 03/06/20 05:20 Lymph % (Auto) Not Reportable 03/06/20 05:20 [place] % (Auto) Not Reportable 03/06/20 05:20 Eos % (Auto) Not Reportable 03/06/20 05:20 Baso % (Auto) Not Reportable 03/06/20 05:20 Absolute Neuts (auto) Not Reportable 03/06/20 05:20 Absolute Lymphs (auto) Not Reportable 03/06/20 05:20 Absolute Monos (auto) Not Reportable 03/06/20 05:20 Absolute Eos (auto) Not Reportable 03/06/20 05:20 Absolute Basos (auto) Not Reportable 03/06/20 05:20 Total Counted 100 03/06/20 05:20 Seg Neutrophils % Not Reportable 03/06/20 05:20 Seg Neuts % (Manual) 56 % (42-78) 03/06/20 05:20 Band Neutrophils % 1 % (3-5) L 03/06/20 05:20 Lymphocytes % (Manual) 20 % (13-45) 03/06/20 05:20 Atypical Lymphs % 1 % (0) 03/06/20 05:20 Monocytes % (Manual) 21 % (3-13) H 03/06/20 05:20 Eosinophils % (Manual) 1 % (0-6) 03/06/20 05:20 Basophils % (Manual) 0 % (0-2) 03/06/20 05:20 Abs Neuts (Manual) 2.5 10^3/uL (1.7-8.2) 03/06/20 05:20 Abs Lymphs (Manual) 0.9 10^3/uL (0.5-4.7) 03/06/20 05:20 Abs Monocytes (Manual) 0.9 10^3/uL (0.1-1.4) 03/06/20 05:20 Absolute Eos (Manual) 0.0 10^3/uL (0.0-0.6) 03/06/20 05:20 Abs Basophils (Manual) 0.0 10^3/uL (0.0-0.2) 03/06/20 05:20 Clumped Platelets PRESENT 03/06/20 05:20 Platelet Comment ADEQUATE 03/06/20 05:20 Poikilocytosis SLIGHT 03/05/20 05:27 Anisocytosis SLIGHT 03/06/20 05:20 Stomatocytes SLIGHT 03/05/20 05:27 PT 15.5 SEC (11.4-15.4) H 03/01/20 16:45 INR 1.21 03/01/20 16:45 Sodium 137.0 mmol/L (137-145) 03/06/20 05:20 Potassium 3.9 mmol/L (3.6-5.0) 03/06/20 05:20 Chloride 105 mmol/L (98-107) 03/06/20 05:20 Carbon Dioxide 25 mmol/L (22-30) 03/06/20 05:20 Anion Gap 7 (5-19) 03/06/20 05:20 BUN 14 mg/dL (7-20) 03/06/20 05:20 Creatinine 0.71 mg/dL (0.52-1.25) 03/06/20 05:20 Est GFR ( Amer) > 60 (>60) 03/06/20 05:20 Est GFR (MDRD) Non-Af > 60 (>60) 03/06/20 05:20 Glucose 108 mg/dL (75-110) 03/06/20 05:20 POC Glucose 85 mg/dL (70-110) 03/03/20 06:04 Lactic Acid 2.0 mmol/L (0.7-2.1) 03/01/20 23:07 Calcium 8.5 mg/dL (8.4-10.2) 03/06/20 05:20 Magnesium 1.5 mg/dL (1.6-2.3) L 03/03/20 12:54 Total Bilirubin 6.8 mg/dL (0.2-1.3) H 03/01/20 16:45 Direct Bilirubin 2.2 mg/dL (0.0-0.4) H 03/01/20 16:45 Neonat Total Bilirubin Not Reportable 03/01/20 16:45 Neonat Direct Bilirubin Not Reportable 03/01/20 16:45 Neonat Indirect Bili Not Reportable 03/01/20 16:45 AST 165 U/L (14-36) H 03/01/20 16:45 ALT 40 U/L (<35) H 03/01/20 16:45 Alkaline Phosphatase 97 U/L (38-126) 03/01/20 16:45 Ammonia 16.7 umol/L (9-33) 03/03/20 12:54 Troponin I 0.042 ng/mL 03/01/20 20:38 Total Protein 8.6 g/dL (6.3-8.2) H 03/01/20 16:45 Albumin 3.8 g/dL (3.5-5.0) 03/01/20 16:45 Urine Color YELLOW 03/01/20 19:03 Urine Appearance CLOUDY 03/01/20 19:03 Urine pH 5.0 (5.0-9.0) 03/01/20 19:03 Ur Specific Ringle 1.019 03/01/20 19:03 Urine Protein >=500 mg/dL (NEGATIVE) H 03/01/20 19:03 Urine Glucose (UA) NEGATIVE mg/dL (NEGATIVE) 03/01/20 19:03 Urine Ketones NEGATIVE mg/dL (NEGATIVE) 03/01/20 19:03 Urine Blood LARGE (NEGATIVE) H 03/01/20 19:03 Urine Nitrite (Reflex) NEGATIVE (NEGATIVE) 03/01/20 19:03 Urine Bilirubin NEGATIVE (NEGATIVE) 03/01/20 19:03 Urine Urobilinogen 2.0 mg/dL (<2.0) H 03/01/20 19:03 Leukocyte Esterase Rfl MODERATE (NEGATIVE) H 03/01/20 19:03 Urine RBC (Auto) 41 /HPF 03/01/20 19:03 U Hyaline Cast (Auto) 20 /LPF 03/01/20 19:03 Urine Bacteria (Auto) 3+ /HPF 03/01/20 19:03 Urine WBC (Reflex) 148 /HPF 03/01/20 19:03 Urine WBC Clumps FEW /HPF 03/01/20 19:03 Squamous Epi Cells Auto 4 /HPF 03/01/20 19:03 U Non-Squamous Epis Auto 1 /HPF 03/01/20 19:03 Urine Mucus (Auto) FEW /LPF 03/01/20 19:03 Urine Creatinine 345.8 mg/dL (15-278) H 03/01/20 19:03 Urine Sodium 28 mmol/L (30-90) L 03/01/20 19:03 Urine Ascorbic Acid NEGATIVE (NEGATIVE) 03/01/20 19:03 Fluid Tube Number 1 03/02/20 12:50 CSF Volume 0.5 CC 03/02/20 12:50 CSF WBC 20 /uL (0-5) H 03/02/20 12:50 CSF RBC 766 /uL (0-10) 03/02/20 12:50 CSF Color (1) LIGHT YELLOW 03/02/20 12:50 CSF Appearance (1) CLEAR 03/02/20 12:50 CSF Mononuclear Cells 91 % 03/02/20 12:50 CSF Polymorphonuclear 9 % 03/02/20 12:50 CSF Glucose Cancelled 03/02/20 12:50 CSF Total Protein Cancelled 03/02/20 12:50 Serum Alcohol < 10 mg/dL (NONE DETECTED) 03/01/20 16:45 COVID-19 Source See comment 03/02/20 09:41 COVID-19 (YONATHAN) Not Detected (Not Detect) 03/02/20 09:41 Herpes Simplex Source Cancelled 03/02/20 12:50 HSV I DNA PCR Cancelled 03/02/20 12:50 HSV II DNA PCR Cancelled 03/02/20 12:50 Influenza A (Rapid) NEGATIVE (NEGATIVE) 03/01/20 20:30 Influenza B (Rapid) NEGATIVE (NEGATIVE) 03/01/20 20:30 03/01/20 03/01/20 16:45 20:38 Troponin I 0.046 0.042 Impressions: Chest X-Ray 03/01/20 16:19 IMPRESSION: NO ACUTE RADIOGRAPHIC FINDING IN THE CHEST. Head CT 03/01/20 16:32 IMPRESSION: Suspected hydrocephalus. NPH? Other cause such as aqueduct stenosis? Consider MRI. No old studies for comparison. TECHNICAL DOCUMENTATION: Quality ID # 436: Final reports with documentation of one or more dose reduction techniques (e.g., Automated exposure control, adjustment of the mA and/or kV according to patient size, use of iterative reconstruction technique) copyright 2011 [employer]- All Rights Reserved Head MRI 03/02/20 00:00 IMPRESSION: Extremely limited brain MRI exam due to motion artifact. No large territory acute ischemic change. Mild ventriculomegaly out of proportion to sulci and sylvian fissures. Hemispheric chronic white matter disease. EVIDENCE OF ACUTE STROKE: NO. Lumbar Puncture 03/02/20 00:00 IMPRESSION: Lumbar puncture under fluoroscopy. No immediate complication. Only obtained 0.5 mL CSF. Venous Doppler Study 03/03/20 00:00 IMPRESSION: Acute DVT common femoral to calf muscles on the left Chest X-Ray 03/04/20 00:00 IMPRESSION: Developing left greater than right basilar atelectasis and/or pneumonia, differential diagnosis would include aspiration and viral infections. Chest X-Ray 03/06/20 00:00 IMPRESSION: Small left basilar effusion with improved aeration at the left lung base. Plan Plan of Treatment: 1. Your altered mental status was likely from dehydration in combination with your urinary tract infection. We saw a huge improvement in your mental status with intravenous fluids. Please make it a point to drink lots of fluids at home! 2. We found that you had an infection in your urine. This was treated with a course of antibiotics. You completed this course in full at the hospital and there is no further treatment needed. 3. Your shortness of breath improved with routine breathing treatments. I have provided you with a prescription for an inhaler. You can take one puff of this every fours hours as needed for relief of any shortness of breath. 4. Blood clot right lower extremity. Your right leg was much bigger than your left leg and imaging showed there was a clot in the vein of your right leg. For this we have started you on Eliquis. Please take Eliquis 10mg twice daily for five days, then take Eliquis 5mg twice daily for every day following for three months time. - You may bleed more easily. Be careful and avoid injury. - If you call and hurt yourself or hit your head, call your doctor right away, Talk with your doctor even if you feel fine. - Please AVOID taking NSAID medications (Ibuprofen these medications together can cause increase risk of bleed. - It is VERY IMPORTANT that you take this medication as prescribed every single day. 5. We have contacted your home health agency. They are aware that you will be needing home health physical therapy, occupation therapy, medication management, and wound care. Goals: Embark on new treatment plan for COPD. Resume home therapy. Time Spent: Greater than 30 Minutes Stroke Is this a Stroke Patient?: No Acute Heart Failure Is this a Heart Failure Patient?: No
[2020-03-07 16:46] VITALS: BP 102/70
[2020-03-07] MEDS ORDERED: APIXABAN 5 MG TABLET PO SCH (18:00)
[2020-03-08] MEDS ORDERED: INFLUENZA QUAD (6MOS+) 2020-21 VAC 0.5 ML SYR IM ONE (08:00)
== END 2020-03-07 20:42 | disposition home health service (06) | DRG 871 ==
LOC: ER 16:04 → EH 03-02 00:08 → ICU 03-02 05:00 → 5 03-04 07:10 → UNDODISIN 03-07 16:49
PROVIDERS: ADMIT Student in an Organized Health Care Education/Training Program; ATTEND Hospitalist
PROC: 009U3ZX Drainage of Spinal Canal, Percutaneous Approach, Diagnostic (ICD-10-PCS; principal; 2020-03-02)
DX: R65.20 Severe sepsis without septic shock (principal); G93.41 Metabolic encephalopathy; N17.9 Acute kidney failure, unspecified; N39.0 Urinary tract infection, site not specified; I82.411 Acute embolism and thrombosis of right femoral vein; G91.9 Hydrocephalus, unspecified; E86.0 Dehydration; B96.1 Klebsiella pneumoniae [K. pneumoniae] as the cause of diseases classified elsewhere; F17.210 Nicotine dependence, cigarettes, uncomplicated; I10 Essential (primary) hypertension; E78.00 Pure hypercholesterolemia, unspecified; E87.6 Hypokalemia; F10.20 Alcohol dependence, uncomplicated; R06.2 Wheezing; M43.6 Torticollis; Z20.828 Contact with and (suspected) exposure to other viral communicable diseases
CPT/HCPCS: 36415; 62328; 70450; 70551; 71045; 80048; 80053; 80307; 81001; 82140; 82570; 82962; 83605; 83735; 84300; 84484; 85025; 85610; 87040; 87070; 87077; 87086; 87088; 87186; 87205; 87635; 87804; 89050; 93005; 93010; 93971; 96361; 96365; 96375; 99285; C9803; J0133; J0290; J0696; J1644; J2060; J3370; J3475; J3480; J3490; J7030; J7050; J7060; J7512